=== PATIENT | female | born 1990 | race Caucasian/White ===

== ENCOUNTER 2019-08-20 11:51 | Outpatient (CLI) | payer BC, SELFPAY ==
--- NOTE | ~2019-08-20 | US_ITS ---
US breast LT complete DATE: 08/20/2019 12:35 INDICATION: Left breast lump at 9:00 TECHNIQUE: Real-time imaging of the complete left breast with particular attention to 9:00 2 cm from nipple at area of clinical complaint COMPARISON: 02/05/2019 left complete breast ultrasound FINDINGS: No suspicious of suspicious mass or suspicious shadowing of the left breast is detected. IMPRESSION: BI-RADS Category 1: Negative Reviewed, dictated and finalized at Location A. Reviewed, dictated and finalized at location A.
== END 2019-08-20 11:52 | disposition home or self-care (01) ==
PROVIDERS: PCP Registered Nurse; Visit Provider Nurse Practitioner Obstetrics & Gynecology
DX: N64.4 Mastodynia (principal)
CPT/HCPCS: 76641

== ENCOUNTER 2020-01-22 12:05 | Outpatient (NON) | payer BC, SELFPAY ==
[2020-01-22 22:14] LABS: SARS-CoV-2 RNA PCR Negative
== END 2020-01-22 12:06 ==
PROVIDERS: PCP Registered Nurse; Visit Provider Registered Nurse
DX: Z20.828 Contact with and (suspected) exposure to other viral communicable diseases (principal); R05 Cough; R53.83 Other fatigue
CPT/HCPCS: 87635; C9803; U0003

== ENCOUNTER → 2020-11-06 08:33 | Outpatient (CLI) | payer BC, SELFPAY ==
--- NOTE | ~2020-11-06 | MMUS_ITS ---
EXAMINATION: MM diagnostic triston BI w buzz, US breast BI complete HISTORY: Palpable bilateral breast lumps with breast pain TECHNIQUE: Additional 3-D tomosynthesis images of the breasts were performed and synthetic 2-D images were generated. CAD analysis was submitted and interpreted. High resolution bilateral complete breas t ultrasound was performed. COMPARISON: 09/08/2017 BREAST PARENCHYMAL COMPOSITION: Breast composed of scattered areas of fibroglandular density. FINDINGS: MAMMOGRAPHIC FINDINGS: There are no suspicious masses, calcifications or architectural distortion in either breast to sugges t malignancy. ULTRASOUND: Unremarkable limited bilateral breast ultrasound without evidence for focal solid or cystic mass. IMPRESSION: 1. No evidence for malignancy in either breast. 2. Routine yearly screening mammogram and regular clinical breast examination are recommended. BI-RADS Category 1: Negative Reviewed, dictated and finalized at location A. IMPRESSION: 1. No evidence for malignancy in either breast. 2. Routine yearly screening mammogram and regular clinical breast examination a re recommended. BI-RADS Category 1: Negative
== END ==
PROVIDERS: Visit Provider Advanced Practice Midwife
DX: N63.0 Unspecified lump in unspecified breast (principal); R92.8 Other abnormal and inconclusive findings on diagnostic imaging of breast
CPT/HCPCS: 76641; 77062; 77066; G0279

== ENCOUNTER → 2021-02-04 08:41 | Outpatient (CLI) | payer BC, SELFPAY ==
--- NOTE | ~2021-02-04 | MR_ITS ---
EXAMINATION: MR brain/brain stem wo con EXAM DATE: 02/04/2021 09:50 INDICATION: Memory loss, forgetfulness, word finding difficulty memory loss, forgetfulness, word find ing difficulty. TECHNIQUE: Magnetic resonance imaging (MRI) of the brain/brain stem obtained without contrast. Maricarmen jones T1, axial diffusion, gradient echo (T2*), T1, T2, FLAIR sequences obtained. Comparison is made to prior examination from 01/03/2013. FINDINGS: There are no areas of restricted diffusion to suggest acute infarction. There is no acute hemorrhage seen on the T2*, a hemosiderin sensitive sequence. No intraparenchymal brain mass. The ve ntricles are normal in size. There are no extra-axial collections. Flow voids are seen in the cereb ral arteries on the T2-weighted sequences consistent with their expected patency. The orbits are unr emarkable. Soft tissue is unremarkable. There is no interval change. IMPRESSION: Normal brain MRI examination. Reviewed, dictated and finalized at location A.
== END ==
PROVIDERS: PCP Registered Nurse; Visit Provider Registered Nurse
DX: R41.3 Other amnesia (principal); R68.89 Other general symptoms and signs; R47.89 Other speech disturbances; Z87.898 Personal history of other specified conditions
CPT/HCPCS: 70551

== ENCOUNTER 2021-08-25 11:20 | Emergency (ER) | payer OTHER, SELFPAY ==
--- NOTE | ~2021-08-25 | XR_ITS ---
EXAMINATION: XR chest 2V DATE: 08/25/2021 12:00 INDICATION: Left chest tightness TECHNIQUE: PA and lateral views of the chest were obtained. COMPARISON: Chest radiograph dated 10/26/2018 FINDINGS: The lungs remain clear with no focal airspace opacities, pulmonary edema, pleural effusion or pneumot horax. The cardiomediastinal silhouette is normal. Visualized bones and soft tissues are unremarkable . IMPRESSION: 1. No acute cardiopulmonary disease. Reviewed, dictated and finalized at location B.
--- NOTE | ~2021-08-25 | CT_ITS ---
EXAMINATION: CT abdomen pelvis w con DATE: 08/25/2021 14:01 INDICATION: abd pain TECHNIQUE: Computed tomography (CT) of the abdomen and pelvis was performed with 75 mL Omnipaque 300 intravenous contrast. Automated exposure control and iterative reconstruction technique were employed . The dose-length product was 1370.47 mGy-cm. COMPARISON: None FINDINGS: Lower thorax: Unremarkable Liver: Normal. Biliary/Gallbladder: Gallbladder is normal. No bile duct dilation. Pancreas: No mass or duct dilation. Spleen: Splenic hypodensities, likely cysts and/or hemangiomas. Adrenals:No mass. Kidneys: No mass, stone, or hydronephrosis. GI tract: No small or large bowel dilation. Normal appendix. Mesentery/Peritoneum: No ascites, mass, or free air. Retroperitoneum: No mass. Pelvis: Pelvic organs are within normal limits. Soft Tissues: Soft tissues and body wall unremarkable. Bones: No acute osseous finding. IMPRESSION: No acute abdominopelvic process. Reviewed, dictated and finalized at location K.
--- NOTE | 2021-08-25 11:23 | ECG_ITS ---
Measurements Intervals [place] Rate: 101 P: 48 [place]: 147 QRS: 34 QRSD: 81 T: -11 QT: 331 QTc: 430 Interpretive Statements SINUS TACHYCARDIA BORDERLINE ST-T WAVE ABNORMALITY- ANTEROLAT/INF LEADS BORDERLINE ECG Electronically Signed On 08-25-2021 11:36:23 CDT by Eliu Wilson D.O.
[2021-08-25 11:30] VITALS: BP 128/64; PULSE 108; RESP 14; TEMP 36.4; O2SAT 100
[2021-08-25 11:47] VITALS: O2SAT 99
[2021-08-25 11:52] LABS: Basophils Absolute Auto 0.1 K/mm3 (0.0-0.1); Basophils Percent Auto 0.6 % (0.2-1.2); Eosinophils Absolute Auto 0.4 K/mm3 (0-0.3); Eosinophils Percent Auto 2.2 % (0-4.4); Hematocrit 38.7 % (37.0-47.0); Immature Granulocyte Absolute 0.04 K/mm3 (0.00-0.031); Immature Granulocyte Percent A 0.2 % (0-0.5); Lymphocytes Absolute Auto 1.48 K/mm3 (0.9-3.2); Lymphocytes Percent Auto 8.7 % (18.3-44.2); Mean Corpuscular HGB Conc 33.6 g/dl (32-36); Mean Corpuscular Hemoglobin 27.4 pg (26-34); Mean Corpuscular Volume 81.6 fl (80-100); Mean Platelet Volume 9.4 fl (7.4-10.4); Monocytes Percent Auto 5.7 % (2.6-8.5); Neutrophils Percent Auto 82.6 % (45.5-73.1); Platelet Count Result 230 k/mm3 (150-375); Red Blood Count 4.74 M/mm3 (4.2-5.4); Red Cell Distribution Width 13.5 % (11.5-14.5); White Blood Count 16.9 K/mm3 (4.5-10.0)
[2021-08-25 12:01] LABS: Alanine Aminotransferase 43 U/L (6-35); Albumin Level 4.2 g/dL (3.5-5.1); Alkaline Phosphatase 39 U/L (38-126); Anion Gap 9 mmol/L (8-16); Aspartate Amino Transferase 39 U/L (14-36); Bilirubin,Total 0.3 mg/dL (0.2-1.3); Blood Urea Nitrogen 11 mg/dL (7-17); Carbon Dioxide 27 mmol/L (22-30); Chloride 103 mmol/L (98-107); Estimated CRCL calculation 105 ml/min; Estimated Glomerular Filt Rate > 60; Glucose 152 mg/dL (65-110); Lipase 90 U/L (23-300); Sodium 139 mmol/L (137-145)
[2021-08-25 12:02] LABS: INR 1.1; Prothrombin Time 13.5 Seconds (11.1-14.7)
[2021-08-25 12:03] LABS: Partial Thromboplastin Time 29.9 SECONDS (22.3-36.8)
[2021-08-25 12:12] LABS: Troponin I < 0.012 ng/mL (0.000-0.034)
[2021-08-25 12:36] LABS: D Dimer 0.47 ug/mL (<0.48)
--- NOTE | 2021-08-25 12:52 | ED.CHESTPAIN ---
HPI - Chest Pain General Chief Complaint: Chest Pain Stated Complaint: chest pain with bilateral extremity tingling Time Seen by Provider: 08/25/21 11:38 History of Present Illness HPI narrative: 30-year-old female presents to the emergency room complaints of chest pain that started at 9:00 this morning felt like a squeezing sensation with and occasional sharp feeling. Patient states the pain was present for approximately 2 hours and was not alleviated or aggravated by any factors. Patient states that she also experienced a candidate radiating pain that started in her feet and worked up to her chest that lasted for just a few seconds. Patient also complained of a headache. Patient also states that she was recently diagnosed with urinary tract infection, which she has not started the antibiotics for you. Patient denies abdominal pain, suprapubic pain, fever, back pain. Related Data Allergies Allergy/AdvReac Type Severity Reaction Status Date / Time adhesive Allergy Unknown RASH Verified 05/09/18 08:00 Course Vital Signs Vital signs: Vital Signs Temperature 36.4 C 08/25/21 11:30 Pulse Rate 108 H 08/25/21 11:30 Respiratory Rate 14 08/25/21 11:30 Blood Pressure 128/64 08/25/21 11:30 Pulse Oximetry 100 08/25/21 11:30 Oxygen Delivery Room Air 08/25/21 11:30 Temperature 36.4 C 08/25/21 11:30 Pulse Rate 90 08/25/21 13:38 Respiratory Rate 16 08/25/21 13:38 Blood Pressure 124/75 08/25/21 13:38 Pulse Oximetry 98 08/25/21 13:38 Oxygen Delivery Room Air 08/25/21 11:47 MDM - Chest Pain MDM Narrative Medical decision making narrative: 30-year-old female presented to the emergency room with complaints of chest discomfort, described as a squeezing pain with an occasional stabbing pain. Patient stated the pain lasted for about 2 2-1/2 hours, and abruptly stopped. Patient also states that she was recently diagnosed with a urinary tract infection, and has not started on antibiotics. CBC shows a leukocytosis of 16.9, likely due to her urinary tract infection CMP was unremarkable lactic acid was elevated likely due to her infection. Urinalysis urine in the emergency room shows no evidence of a urinary tract infection, but will treat patient. Troponin was negative. Imaging shows no acute cardiopulmonary process, or intra-abdominal process at this time. Lab Data Result diagrams: 08/25/21 11:45 08/25/21 11:45 Labs: Lab Results 08/25/21 08/25/21 08/25/21 Range/Units 11:44 11:45 11:45 WBC 16.9 H (4.5-10.0) K/mm3 RBC 4.74 (4.2-5.4) M/mm3 Hgb 13.0 (12.0-15.0) g/dL Hct 38.7 (37.0-47.0) % MCV 81.6 (80-100) fl MCH 27.4 (26-34) pg MCHC 33.6 (32-36) g/dl RDW 13.5 (11.5-14.5) % Plt Count 230 (150-375) k/mm3 MPV 9.4 (7.4-10.4) fl Immature Gran % (Auto) 0.2 (0-0.5) % Neut % (Auto) 82.6 H (45.5-73.1) % Lymph % (Auto) 8.7 L (18.3-44.2) % Leon % (Auto) 5.7 (2.6-8.5) % Eos % (Auto) 2.2 (0-4.4) % Baso % (Auto) 0.6 (0.2-1.2) % Lymph # (Auto) 1.48 (0.9-3.2) K/mm3 Leon # (Auto) 1.0 H (0.1-0.6) K/mm3 Eos # (Auto) 0.4 H (0-0.3) K/mm3 Baso # (Auto) 0.1 (0.0-0.1) K/mm3 Abs Immat Gran (auto) 0.04 H (0.00-0.031) K/mm3 Absolute Neuts (auto) 14.0 H (1.3-6.7) K/mm3 Absolute Nucleated RBC 0.0 (0.0-0.012) K/mm3 Nucleated RBC % 0.0 (0.0-0.2) % PT 13.5 (11.1-14.7) Seconds INR 1.1 APTT 29.9 (22.3-36.8) SECONDS D-Dimer 0.47 (<0.48) ug/mL Sodium (137-145) mmol/L Potassium (3.4-5.0) mmol/L Chloride (98-107) mmol/L Carbon Dioxide (22-30) mmol/L Anion Gap (8-16) mmol/L BUN (7-17) mg/dL Creatinine (0.7-1.0) mg/dL Estim Creat Clear Calc ml/min Estimated GFR (59 - ) Glucose (65-110) mg/dL Lactic Acid (0.7-2.0) mmol/L Calcium (8.4-10.2) mg/dL Total Bilirubin (0.2-1.3) mg/dL AST (14-36) U/L AL
[2021-08-25 13:19] LABS: Appearance Urine Clear (Clear); Bilirubin Urine Negative (Negative); Blood Urine Negative (Negative); Color Urine Yellow (Yellow); Glucose Urine UA Negative (Negative); Ketones Urine Negative (Negative); Leukocyte Esterase Ur Negative LEU/UL (Negative); Nitrate Urine Negative (Negative); Protein Urine Negative (Negative); Specific Grav Ur 1.025 (1.001-1.035); Urobilinogen Urine 0.2 mg/dL (<2.0); pH Urine 5.5 (5.0-9.0)
[2021-08-25] MEDS: SODIUM CHLORIDE 0.9% IV 1,000 ML 999 ML IV CONT (13:19)
[2021-08-25 13:20] LABS: Lactic Acid Reflex 2.4 mmol/L (0.7-2.0)
[2021-08-25 13:23] LABS: Add Urine Microscopic? NO
[2021-08-25 13:38] VITALS: BP 124/75; PULSE 90; RESP 16; O2SAT 98
--- NOTE | 2021-08-25 13:53 | PC.NURSE ---
Pt to CT.
[2021-08-25 14:17] VITALS: PULSE 97; RESP 16; O2SAT 99
[2021-08-25 14:38] LABS: Troponin I < 0.012 ng/mL (0.000-0.034)
[2021-08-25 16:08] LABS: Reflex Lactic Acid Yes or No Add Lactic
== END 2021-08-25 14:34 | disposition home or self-care (01) ==
PROVIDERS: General Practice; Emergency Provider Nurse Practitioner Family; PCP Registered Nurse
DX: R07.9 Chest pain, unspecified (principal); N39.0 Urinary tract infection, site not specified; R00.0 Tachycardia, unspecified; R94.31 Abnormal electrocardiogram [ECG] [EKG]
CPT/HCPCS: 36415; 71046; 74177; 80053; 81003; 81025; 83605; 83690; 84484; 85025; 85380; 85610; 85730; 93005; 96365; 99284; J0696; J7030; Q9967

== ENCOUNTER 2021-09-30 12:20 | Emergency (ER) | payer OTHER, SELFPAY ==
--- NOTE | ~2021-09-30 | XR_ITS ---
XR knee LT min 4V DATE: 09/30/2021 12:42 INDICATION: Left knee injury, pain TECHNIQUE: 4 views including crosstable lateral COMPARISON: None FINDINGS: Small suprapatellar knee joint effusion is suggested. Minimal enthesopathy of the superior pole of patella at the quadriceps tendon insertion. No fracture, dislocation, periosteal reaction or bone destruction, radiopaque intra-articular loose b benton or chondrocalcinosis. Joint spaces are relatively well preserved. IMPRESSION: Suggestion of small suprapatellar knee joint effusion Reviewed, dictated and finalized at location B.
[2021-09-30 12:28] VITALS: BP 139/75; PULSE 97; RESP 16; TEMP 36.6; O2SAT 100
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
== END 2021-09-30 12:58 | disposition home or self-care (01) ==
PROVIDERS: Emergency Provider Nurse Practitioner Family; PCP Registered Nurse
DX: M25.462 Effusion, left knee (principal); J45.909 Unspecified asthma, uncomplicated; F31.9 Bipolar disorder, unspecified
CPT/HCPCS: 73564; 99213; G0463

== ENCOUNTER → 2021-11-28 09:41 | Outpatient (CLI) | payer OTHER, SELFPAY ==
--- NOTE | ~2021-11-28 | MR_ITS ---
EXAMINATION: MR knee LT wo con DATE: 11/28/2021 10:23 INDICATION: Medial left knee pain post fall 2 months prior TECHNIQUE: Magnetic resonance imaging (MRI) of the left knee was performed without intravenous contra st. Sequences included coronal PD-weighted FSE, coronal PD-weighted FS FSE, sagittal T2-weighted FSE , sagittal PD-weighted FS FSE and axial PD weighted fat saturated FSE. COMPARISON: None. FINDINGS: Medial compartment: Medial meniscus is normal. Articular cartilage is normal. Lateral compartment: Lateral meniscus is normal. Articular cartilage is normal. Patellofemoral compartment: Articular cartilage is normal. Ligaments and tendons: Anterior and posterior cruciate ligaments are normal. The fibular collateral ligament complex is norm al. There is mild thickening and increased signal of the proximal medial collateral ligament with min imal surrounding soft tissue edema consistent with subacute moderate grade sprain/partial tear. The e xtensor mechanism is normal. The visualized medial and lateral hamstring tendons as well as the iliot ibial band are normal. Fluid: Physiologic amount of fluid in the joint space. No loose osteochondral bodies identified. Osseous/other: Mild marrow edema such with a subtle linear subarticular impaction fracture line at the posterior asp ect of the weightbearing lateral femoral condyle. Otherwise normal marrow signal. No other lesions byrd spicious for fracture. No pathologic marrow replacing process. IMPRESSION: 1. Moderate grade sprain/partial tear of the proximal medial collateral ligament. 2. Nondisplaced subacute subarticular trabecular impaction fracture underlying the posterior weightbe aring lateral femoral condyle. Reviewed, dictated and finalized at location A. IMPRESSION: 1. Moderate grade sprain/partial tear of the proximal medial collateral ligamen t. 2. Nondisplaced subacute subarticular trabecular impaction fracture underlying the posterior weightbearing lateral femoral condyle.
== END ==
PROVIDERS: PCP Registered Nurse; Visit Provider Registered Nurse
DX: S83.412A Sprain of medial collateral ligament of left knee, initial encounter (principal); S72.425A Nondisplaced fracture of lateral condyle of left femur, initial encounter for closed fracture; X58.XXXA Exposure to other specified factors, initial encounter
CPT/HCPCS: 73721

== ENCOUNTER 2022-06-04 00:27 | Day surgery (SDC) | payer OTHER, SELFPAY ==
[2022-05-19 15:41] VITALS: BMI 42.5
[2022-06-04 08:35] VITALS: BP 114/67; PULSE 90; RESP 20; TEMP 36.4; O2SAT 100; BMI 40.9
[2022-06-04] MEDS: LACTATED RINGERS 1,000 ML 150 ML IV CONT (08:56)
--- NOTE | 2022-06-04 09:07 | P.PNAN_ITS ---
Anes - Initial Pre Proc Eval Procedure: Operation Date: 06/04/22 10:00 Proposed Procedures p Colonoscopy - Mateusz Tomlin MD Date/Time: 06/04/22 09:07 Surgeon: Mateusz Tomlin MD Pre Op Diagnosis: change bowel habits,diarrhea,Lower abdominal pain Patient Data Age: 31 Gender: F Height: 1.6 m Weight: 104.9 kg Last Vital Signs Temp 97.6 F 06/04/22 08:35 Pulse 90 06/04/22 08:35 Resp 20 06/04/22 08:35 BP 114/67 06/04/22 08:35 Pulse Ox 100 06/04/22 08:35 O2 Del Method Room Air 06/04/22 08:35 Allergies Allergy/AdvReac Type Severity Reaction Status Date / Time adhesive Allergy Unknown RASH Verified 06/04/22 08:45 Home Medications Medication Instructions Recorded Confirmed Type albuterol sulfate 90 mcg/actuation 2 puff inhalation Q4H PRN 04/29/22 06/04/22 History aerosol inhaler Shortness Of Breath clonidine HCl 0.1 mg tablet 0.1 mg PO BID 04/29/22 06/04/22 History escitalopram oxalate 20 mg tablet 20 mg PO DAILY 04/29/22 06/04/22 History lamotrigine 200 mg tablet 200 mg PO QHS 04/29/22 06/04/22 History risperidone 0.25 mg tablet 0.25 mg PO QHS 04/29/22 06/04/22 History ferrous sulfate 325 mg (65 mg 325 mg PO DAILY 05/19/22 06/04/22 History iron) tablet Patient hx anesthesia problems: none Family hx anesthesia problems: none Results Review: All pre-operative results and documents have been reviewed as part of the pre- operative evaluation. [facility] Past Medical History Medical History History of brain tumor resolved Pre-diabetes Sleep apnea Surgical History Surgical History History of colonoscopy normal Hx of tonsillectomy Family History Family History Father Hypertension Mother Diabetes mellitus Heart problem Sibling Acute myocardial infarction, Onset Age: 26 , Social History Social History Smoking status: Never smoker Alcohol intake: never Substance use: never Substance use type: does not use Living arrangements: with family Occupation/Education: occupation Additional occupation/education comments: [employer] Gender identity (if verbalized by the patient): Female Spiritual care concerns: No Anes - Eval Final PreProcedure Day of Procedure 06/04/22 09:07 Patient weight: morbidly obese Heart: regular rate and rhythm Lungs: clear to auscultation Airway: Mallampati scale class II Neurological: alert and oriented Last oral intake: >/= 8 hours ASA classification: III Emergent: no Anesthetic plan: proceed Anesthesia type and monitoring: general GIVS and standard monitoring Results Review: All pre-operative results and documents have been reviewed as part of the pre- operative evaluation. Informed Consent: The patient's anesthetic plan and its attendant risks and benefits were discussed with the patient/family/POA. Questions were solicited and answers provided to the satisfaction of the patient/family/POA.
--- NOTE | 2022-06-04 09:12 | PM.HPGS ---
History of Present Illness History of Present Illness Consent: Risks, benefits, and alternatives have been discussed and questions answered. Patient agrees to proceed with procedure. Chief complaint: change bowel habits,diarrhea,Lower abdominal pain Narrative: Lara Laboy is a 31 year old female with few months of loose stool and abdominal discomfort, better after given abx Review of Systems Constitutional: Constitutional: Denies headache(s) and Denies weakness Eyes: Eyes: Denies blurry vision ENT: Reports Normal hearing present, Denies headache(s) and Denies neck pain Cardiovascular: Cardiovascular: Denies chest pain and Denies dyspnea Respiratory: Respiratory: Denies dyspnea Gastrointestinal: Gastrointestinal: Reports no additional gastrointestinal complaints Genitourinary: Genitourinary: Denies dysuria Musculoskeletal: Musculoskeletal: Denies neck pain Integumentary/Breasts: Skin/Breast: Denies dry skin Neurologic: Reports Normal hearing present, Denies headache(s) and Denies weakness Psychiatric: Psychiatric: Denies anxiety Endocrine: Endocrine: Denies change in body appearance Hematologic/Lymphatic: Hematologic/Lymphatic: Denies easy bleeding Allergic/Immunologic: Allergic/Immunologic: Denies urticaria PMFSH Past Medical History Medical History (Updated 06/04/22 @ 09:13 by Mateusz Tomlin MD) Diarrhea History of brain tumor resolved Pre-diabetes Sleep apnea Surgical History Surgical History History of colonoscopy normal Hx of tonsillectomy Family History Family History Father Hypertension Mother Diabetes mellitus Heart problem Sibling Acute myocardial infarction, Onset Age: 26 , Social History Social History Smoking status: Never smoker Alcohol intake: never Substance use: never Substance use type: does not use Living arrangements: with family Occupation/Education: occupation Additional occupation/education comments: [employer] Gender identity (if verbalized by the patient): Female Spiritual care concerns: No Meds Home Medications and Allergies Home Medications Medication Instructions Recorded Confirmed Type albuterol sulfate 90 mcg/actuation 2 puff inhalation Q4H PRN 04/29/22 06/04/22 History aerosol inhaler Shortness Of Breath clonidine HCl 0.1 mg tablet 0.1 mg PO BID 04/29/22 06/04/22 History escitalopram oxalate 20 mg tablet 20 mg PO DAILY 04/29/22 06/04/22 History lamotrigine 200 mg tablet 200 mg PO QHS 04/29/22 06/04/22 History risperidone 0.25 mg tablet 0.25 mg PO QHS 04/29/22 06/04/22 History ferrous sulfate 325 mg (65 mg 325 mg PO DAILY 05/19/22 06/04/22 History iron) tablet Allergies Allergy/AdvReac Type Severity Reaction Status Date / Time adhesive Allergy Unknown RASH Verified 06/04/22 08:45 Vital Signs Vital Signs - 24 hr 06/04/22 08:35 Temperature 97.6 F Pulse Rate 90 Respiratory Rate 20 Blood Pressure 114/67 Pulse Oximetry 100 Oxygen Delivery Room Air Exam Const: General: comfortable and no acute distress HENMT: Face/Nose/Sinus: Normal nares present Eyes: General: appearance normal, both eyes and all related structures Neck: Neck: no JVD Resp: Auscultation: clear to auscultation bilaterally Cardio: Rate: regular rate Rhythm: regular rhythm GI: Inspection: non-distended GI Palp: Yes Soft to palpation Skin: General skin exam: normal color Neuro: General: gait normal Speech: normal speech Extrem: General: normal to inspection Psych: Mental Status: mental status grossly normal Assessment and Plan Assessment and plan (1) Diarrhea: Code(s): R19.7 - Diarrhea, unspecified Status: Acute Assessment and Plan: colonoscopy, consider random colon bx
[2022-06-04 09:29] VITALS: BP 103/67; PULSE 81; RESP 22; O2SAT 100
[2022-06-04 09:39] VITALS: BP 118/80; PULSE 81; RESP 18; O2SAT 100
[2022-06-04 09:49] VITALS: BP 125/88; PULSE 77; RESP 20; O2SAT 100
== END 2022-06-04 09:59 | disposition home or self-care (01) ==
PROVIDERS: PCP Family Medicine Adolescent Medicine; Visit Provider Internal Medicine Gastroenterology
PROC: 0DJD8ZZ Inspection of Lower Intestinal Tract, Via Natural or Artificial Opening Endoscopic (ICD-10-PCS; CPT 45378; principal; 2022-06-04 10:00)
DX: R19.7 Diarrhea, unspecified (principal); K64.8 Other hemorrhoids; K64.4 Residual hemorrhoidal skin tags; G47.30 Sleep apnea, unspecified; Z79.51 Long term (current) use of inhaled steroids; E66.01 Morbid (severe) obesity due to excess calories; Z68.41 Body mass index [BMI] 40.0-44.9, adult
CPT/HCPCS: 45380; 88305; J2704; J7120

== ENCOUNTER 2022-11-23 18:09 | Emergency (ER) | payer OTHER, SELFPAY ==
--- NOTE | ~2022-11-23 | XR_ITS ---
EXAMINATION: XR chest 2V DATE: 11/23/2022 18:51 INDICATION: Chest pain and shortness of breath TECHNIQUE: PA and lateral views of the chest were obtained. COMPARISON: Chest radiograph dated 08/25/2021 FINDINGS: The lungs remain clear with no focal airspace opacities, pulmonary edema, pleural effusion or pneumot horax. The cardiomediastinal silhouette is normal. Mild to moderate thoracic and upper lumbar spondyl osis. IMPRESSION: 1. No acute cardiopulmonary disease. Reviewed, dictated and finalized at location A.
--- NOTE | 2022-11-23 18:13 | ECG_ITS ---
Measurements Intervals [place] Rate: 84 P: 44 [place]: 156 QRS: 51 QRSD: 75 T: -1 QT: 380 QTc: 450 Interpretive Statements SINUS RHYTHM COMPARED TO ECG 08/25/2021 11:28:06 THE HEART RATE IS SLOWER Electronically Signed On 11-24-2022 17:18:07 CDT by Cinthya Rick M.D.
[2022-11-23 18:20] VITALS: BP 128/83; PULSE 79; RESP 18; TEMP 36.6; O2SAT 99
[2022-11-23 18:47] LABS: Basophils Absolute Auto 0.1 K/mm3 (0.0-0.1); Basophils Percent Auto 0.8 % (0.2-1.2); Eosinophils Absolute Auto 0.4 K/mm3 (0-0.3); Eosinophils Percent Auto 3.6 % (0-4.4); Hematocrit 39.7 % (37.0-47.0); Hemoglobin 12.8 g/dL (12.0-15.0); Immature Granulocyte Absolute 0.03 K/mm3 (0.00-0.031); Immature Granulocyte Percent A 0.3 % (0-0.5); Lymphocytes Absolute Auto 2.69 K/mm3 (0.9-3.2); Mean Corpuscular HGB Conc 32.2 g/dl (32-36); Mean Corpuscular Hemoglobin 27.5 pg (26-34); Mean Corpuscular Volume 85.4 fl (80-100); Mean Platelet Volume 9.9 fl (7.4-10.4); Monocytes Absolute Auto 0.5 K/mm3 (0.1-0.6); Monocytes Percent Auto 4.7 % (2.6-8.5); Neutrophils Absolute Auto 6.7 K/mm3 (1.3-6.7); Neutrophils Percent Auto 64.6 % (45.5-73.1); Platelet Count Result 255 k/mm3 (150-375); Red Blood Count 4.65 M/mm3 (4.2-5.4); Red Cell Distribution Width 13.5 % (11.5-14.5); White Blood Count 10.3 K/mm3 (4.5-10.0)
[2022-11-23 18:57] LABS: Alanine Aminotransferase 34 U/L (6-35); Albumin Level 4.5 g/dL (3.5-5.1); Alkaline Phosphatase 39 U/L (38-126); Anion Gap 10 mmol/L (8-16); Aspartate Amino Transferase 26 U/L (14-36); Bilirubin,Total 0.4 mg/dL (0.2-1.3); Blood Urea Nitrogen 16 mg/dL (7-17); Calcium 9.1 mg/dL (8.4-10.2); Carbon Dioxide 24 mmol/L (22-30); Chloride 102 mmol/L (98-107); Estimated CRCL calculation 102 ml/min; Estimated Glomerular Filt Rate > 60; Glucose 125 mg/dL (65-110); Lipase 78 U/L (23-300); Sodium 136 mmol/L (137-145)
[2022-11-23 18:58] LABS: Prothrombin Time 14.2 Seconds (11.1-14.7)
[2022-11-23 18:59] LABS: Partial Thromboplastin Time 31.2 SECONDS (22.3-36.8)
[2022-11-23 19:09] LABS: Troponin I < 0.012 ng/mL (0.000-0.034)
[2022-11-23 22:30] VITALS: O2SAT 100
--- NOTE | 2022-11-23 23:15 | PC.NURSE ---
gave report and care to RANDY Garcia. all questions answered.
[2022-11-23 23:31] LABS: Troponin I < 0.012 ng/mL (0.000-0.034)
--- NOTE | 2022-11-23 23:54 | ED.CHESTPAIN ---
HPI - Chest Pain General Chief Complaint: Chest Pain Stated Complaint: chest pain Time Seen by Provider: 11/23/22 23:21 Source: patient Mode of arrival: ambulatory Limitations: no limitations History of Present Illness HPI narrative: This is a 31 year old female that presents to the ER for episodes of chest pain today. Reports she started to have left sided intermittent chest pain. Reports the pain is stabbing in nature. Comes and goes. Reports some associated shortness of breath. Reports lightheadedness. Also reports a headache. Denies vomiting, numbness or weakness. Related Data Home Medications Medication Instructions Recorded Confirmed albuterol sulfate 90 mcg/actuation 2 puff inhalation Q4H PRN 04/29/22 09/29/22 aerosol inhaler Shortness Of Breath clonidine HCl 0.1 mg tablet 0.1 mg PO BID 04/29/22 09/29/22 escitalopram oxalate 20 mg tablet 20 mg PO DAILY 04/29/22 09/29/22 lamotrigine 200 mg tablet 200 mg PO QHS 04/29/22 09/29/22 risperidone 0.25 mg tablet 0.25 mg PO QHS 04/29/22 09/29/22 ferrous sulfate 325 mg (65 mg 325 mg PO DAILY 05/19/22 09/29/22 iron) tablet Allergies Allergy/AdvReac Type Severity Reaction Status Date / Time adhesive Allergy Unknown RASH Verified 11/23/22 18:23 Review of Systems Review of Systems: CONSTITUTIONAL: Denies fever EYES: Denies visual changes CARDIOVASCULAR: Reports chest pain. Denies palpitations, or edema. RESPIRATORY: Reports cough and dyspnea. GASTROINTESTINAL: Denies abdominal pain, nausea, vomiting GENITOURINARY: Denies dysuria All systems reviewed & are unremarkable except as noted in HPI and below PMFSH Past Medical History Medical History Diarrhea History of brain tumor resolved Pre-diabetes Sleep apnea Urinary tract infection Surgical History Surgical History History of colonoscopy normal Hx of tonsillectomy Family History Family History Father Hypertension Mother Diabetes mellitus Heart problem Sibling Acute myocardial infarction, Onset Age: 26 , Social History Social History Smoking status: Never smoker Alcohol intake: never Substance use: never Substance use type: does not use Lack of Transportation: No Lack of Food: Never True Current Housing: I Have Housing Concerned About Future Housing: No Difficulty Paying Gas/Electric Bills: No Difficulty Paying for Meds: No Currently Unemployed: No Education: High School Diploma/GED Difficulty w/ Childcare or Family Care: Decline to Answer Living arrangements: with family Occupation/Education: occupation Additional occupation/education comments: [employer] Gender identity (if verbalized by the patient): Female Spiritual care concerns: No Exam Narrative: GENERAL: Well-appearing, well-nourished, and in no acute distress. HEAD: Normocephalic, atraumatic. EYES: EOMI. ENT: Nares clear, no rhinorrhea or epistaxis. Mucous membranes moist. Oropharynx without tonsillar hypertrophy exudate or other lesions. Bilateral TMs pearly olivia non-bulging NECK: Supple. No adenopathy or masses. CHEST: Clear to auscultation. No respiratory distress. No wheezes rales or rhonchi HEART: Regular rate and rhythm. No murmur heard. Normal peripheral pulses. EXTREMITIES: Normal range of motion. No edema. SKIN: Warm, dry, no rash. NEURO: No focal deficits. Alert and oriented x3. PSYCH: Normal mood and affect Course Course Emergency Course: Patient was updated on workup and agrees with plan of care Vital Signs Vital signs: Vital Signs Temperature 98 F 11/23/22 18:20 Pulse Rate 79 11/23/22 18:20 Respiratory Rate 18 11/23/22 18:20 Blood Pressure 128/83 11/23/22 18:20 Pulse Oximetry 99
[2022-11-24] MEDS: ACETAMINOPHEN 500 MG TABLET 1000 MG PO (00:29)
[2022-11-24] MEDS: KETOROLAC 15 MG/ML VIAL (*BKC) IV PUSH (00:29)
[2022-11-24 00:47] LABS: Appearance Urine Cloudy (Clear); Bacteria Urine Rare /hpf; Bilirubin Urine Negative (Negative); Blood Urine 3+ (Negative); Color Urine Yellow (Yellow); Glucose Urine UA Negative (Negative); Ketones Urine Negative (Negative); Leukocyte Esterase Ur 1+ LEU/UL (Negative); Nitrate Urine Negative (Negative); Non Pathogenic Casts 0-2; Protein Urine Trace mg/dL (Negative); RBC Urine >100 /hpf (0-2); Specific Grav Ur 1.028 (1.001-1.035); Squamous Epithelial Cell Urine Few /hpf (Few); Urobilinogen Urine 0.2 mg/dL (<2.0); WBC Urine 21-50 /hpf; pH Urine 5.5 (5.0-9.0)
[2022-11-24 00:50] LABS: Add Urine Microscopic? YES
[2022-11-24 00:53] VITALS: BP 124/71; PULSE 88; RESP 21; O2SAT 98
== END 2022-11-24 01:48 | disposition home or self-care (01) ==
PROVIDERS: Emergency Medicine; Emergency Provider Physician Assistant; PCP Family Medicine Adolescent Medicine
DX: R07.9 Chest pain, unspecified (principal); N30.01 Acute cystitis with hematuria; R73.03 Prediabetes; G47.30 Sleep apnea, unspecified; Z79.84 Long term (current) use of oral hypoglycemic drugs
CPT/HCPCS: 36415; 71046; 80053; 81001; 81025; 83690; 84484; 85025; 85610; 85730; 87086; 87088; 93005; 96374; 99284; A9270; J1885

== ENCOUNTER 2023-01-17 08:01 | Emergency (ER) | payer OTHER, SELFPAY ==
[2023-01-17 08:17] VITALS: BP 121/71; PULSE 83; RESP 18; TEMP 36.2; O2SAT 100
--- NOTE | 2023-01-17 08:25 | ED.SOB ---
HPI - SOB/Dyspnea General Chief Complaint: Shortness of Breath/Dyspnea Stated Complaint: hard time breathing ,pressure Source: patient Mode of arrival: ambulatory Limitations: no limitations History of Present Illness HPI Narrative: 61-[id number]-[facility] Complaints of shortness of breath since yesterday. Patient reports that her symptoms became worse today. Patient reports that she does have intermittent cough. Patient reports that she did have dizziness this morning. Patient reports that she has had to use her inhaler due to shortness of breath which has mildly helped her symptoms. Patient does report history of asthma. Patient denies sick contacts. Patient denies recent travel. Patient states I have shortness of breath, I have to manually breathe and feels like sometimes stops it. MD elicited complaint: shortness of breath and cough Pertinent past history: asthma Onset (ago): day(s) (1) Known history of: asthma Treatment prior to arrival: other (inhaler) Related Data Home Medications Medication Instructions Recorded Confirmed albuterol sulfate 90 mcg/actuation 2 puff inhalation Q4H PRN 04/29/22 01/17/23 aerosol inhaler Shortness Of Breath clonidine HCl 0.1 mg tablet 0.1 mg PO BID 04/29/22 01/17/23 escitalopram oxalate 20 mg tablet 20 mg PO DAILY 04/29/22 01/17/23 lamotrigine 200 mg tablet 200 mg PO QHS 04/29/22 01/17/23 risperidone 0.25 mg tablet 0.25 mg PO QHS 04/29/22 01/17/23 ferrous sulfate 325 mg (65 mg 325 mg PO DAILY 05/19/22 01/17/23 iron) tablet Allergies Allergy/AdvReac Type Severity Reaction Status Date / Time adhesive Allergy Unknown RASH Verified 01/17/23 08:15 Review of Systems Constitutional: Constitutional: Denies chills, Denies fatigue, Denies fever(s) and Denies weakness ENT: Denies dysphagia, Denies vertigo, Reports dizziness, Denies epistaxis and Denies nasal congestion Cardiovascular: Cardiovascular: Denies chest pain Respiratory: Respiratory: Denies chest congestion, Reports cough, Reports dyspnea and Denies wheezing Gastrointestinal: Gastrointestinal: Denies diarrhea, Denies nausea and Denies vomiting Musculoskeletal: Musculoskeletal: Denies arthralgias and Denies joint swelling Integumentary/Breasts: Skin/Breast: Denies pruritus, Denies erythema and Denies rash Neurologic: Denies vertigo, Reports dizziness, Denies syncope and Denies headache(s) [facility] Past Medical History Medical History Diarrhea History of brain tumor resolved Pre-diabetes Sleep apnea Urinary tract infection Surgical History Surgical History History of colonoscopy normal Hx of tonsillectomy Family History Family History Father Hypertension Mother Diabetes mellitus Heart problem Sibling Acute myocardial infarction, Onset Age: 26 , Social History Social History Smoking status: Never smoker Alcohol intake: never Substance use: never Substance use type: does not use Lack of Transportation: No Lack of Food: Never True Current Housing: I Have Housing Concerned About Future Housing: No Difficulty Paying Gas/Electric Bills: No Difficulty Paying for Meds: No Currently Unemployed: No Education: High School Diploma/GED Difficulty w/ Childcare or Family Care: Decline to Answer Living arrangements: with family Occupation/Education: occupation Additional occupation/education comments: [employer] Gender identity (if verbalized by the patient): Female Spiritual care concerns: No Comments At time of signature, I agree with nursing past medical, surgical, social and family history. There is no relevant family history pertinent to the presenting complaint. Exam Const: General:
[2023-01-17 11:41] LABS: EDCOVIDSCREEN Negative (Negative)
== END 2023-01-17 09:14 | disposition left against medical advice (07) ==
PROVIDERS: Emergency Provider Nurse Practitioner Family; PCP Family Medicine Adolescent Medicine
DX: J45.909 Unspecified asthma, uncomplicated (principal); R06.00 Dyspnea, unspecified; Z79.899 Other long term (current) drug therapy; Z20.822 Contact with and (suspected) exposure to COVID-19
CPT/HCPCS: 36415; 87426; 99213; C9803; G0463

== ENCOUNTER 2023-07-18 14:28 | Outpatient (CLI) | payer OTHER, SELFPAY ==
--- NOTE | ~2023-07-18 | XR_ITS ---
EXAMINATION: XR TMJ BI DATE: 07/18/2023 15:08 INDICATION: Arthralgia of right temporomandibular joint. TECHNIQUE: Open-mouth and closed mouth views of the bilateral temporomandibular joints for a total of 4 views were obtained. COMPARISON: None. FINDINGS: The mandibular condyles are normal in morphology. There is normal anterior translation of t he mandibular condyles in the open-mouth position. Joint spaces are normal. IMPRESSION: 1. Normal temporomandibular joints. Reviewed, dictated and finalized at location E.
== END 2023-07-18 14:29 ==
LOC: MICIMG 14:29
PROVIDERS: PCP Nurse Practitioner Family; Visit Provider Nurse Practitioner Family
DX: M26.621 Arthralgia of right temporomandibular joint (principal)
CPT/HCPCS: 70330

== ENCOUNTER 2023-09-29 15:22 | Outpatient (CLI) | payer OTHER, SELFPAY ==
--- NOTE | ~2023-09-29 | CT_ITS ---
EXAMINATION: CT IAC/mastoids BI wo con DATE: 09/29/2023 15:38 INDICATION: Right-sided hearing loss. Tinnitus. Right ear pain. TECHNIQUE: Computed tomography (CT) of the temporal bones was performed without intravenous contrast. Automated exposure control and iterative reconstruction technique were employed. The dose-length pro duct was 181.17 mGy-cm. COMPARISON: None FINDINGS: RIGHT TEMPORAL BONE: The internal auditory canal, cochlea, vestibule, semicircular canals, vestibular aqueduct, carotid ca nal, jugular bulb, facial nerve course, ossicles, Prussak space, scutum, tympanic membrane, external auditory canal, and temporomandibular joint are normal. There is a small mastoid effusion. LEFT TEMPORAL BONE: The internal auditory canal, cochlea, vestibule, semicircular canals, common carotid canal, jugular b ulb, vestibular aqueduct, ossicles, Prussak space, scutum, mastoid air cells, external auditory canal , and temporomandibular joint are normal. IMPRESSION: 1. Small right mastoid effusion. Reviewed, dictated and finalized at location A.
== END 2023-09-29 15:23 ==
LOC: MICIMG 15:22
PROVIDERS: PCP Otolaryngology; Visit Provider Otolaryngology
DX: H74.8X1 Other specified disorders of right middle ear and mastoid (principal); H90.6 Mixed conductive and sensorineural hearing loss, bilateral
CPT/HCPCS: 70480

== ENCOUNTER → 2024-07-27 09:17 | Outpatient (CLI) | payer OTHER, SELFPAY ==
--- NOTE | ~2024-07-27 | XR_ITS ---
Clinical Indication: Gastroesophageal reflux disease PA and lateral views of the chest: Comparison: 11/23/2022 Findings: The lungs are clear, without evidence of focal consolidation or pleural effusion. Cardiome diastinal silhouette is within normal limits. Bones and soft tissues are unremarkable. Impression: Normal chest. Reviewed, dictated and finalized at [facility]. Impression: Normal chest.
== END ==
PROVIDERS: Visit Provider Nurse Practitioner Family
DX: K21.9 Gastro-esophageal reflux disease without esophagitis (principal); R07.9 Chest pain, unspecified; R10.13 Epigastric pain
CPT/HCPCS: 71046

== ENCOUNTER 2024-07-30 16:57 | Emergency (ER) | payer OTHER, SELFPAY ==
--- NOTE | ~2024-07-30 | XR_ITS ---
CHEST RADIOGRAPH, PA AND LATERAL CLINICAL HISTORY: chest pain . COMPARISON: 07/27/2024 TECHNIQUE: PA and lateral views of the chest. FINDINGS The cardiomediastinal silhouette is unremarkable. The lungs are clear. Visualized osseous structures and soft tissues are unremarkable. IMPRESSION: No focal infiltrate or effusion. Reviewed, dictated and finalized at location A.
--- NOTE | 2024-07-30 17:02 | ECG_ITS ---
Test Date: 2024-07-30 17:09:48 Measurements Intervals [place] Rate: 72 P: 37 NC: 148 QRS: 35 QRSD: 77 T: -5 QT: 388 QTc: 427 Interpretive Statements SINUS RHYTHM NONSPECIFIC T-WAVE ABNORMALITY- ANT/INF LEADS BASELINE ARTIFACT- I, II, III, AVR, AVL, AVF BORDERLINE ECG No previous ECG available for comparison Electronically Signed On 07-30-2024 19:48:01 CDT by Eliu Wilson D.O.
[2024-07-30 17:04] VITALS: BP 134/90; PULSE 88; RESP 14; TEMP 36.6; O2SAT 100
[2024-07-30 17:33] LABS: Basophils Absolute Auto 0.1 K/mm3 (0.0-0.1); Basophils Percent Auto 1.1 % (0.2-1.2); Eosinophils Absolute Auto 0.4 K/mm3 (0-0.3); Eosinophils Percent Auto 4.9 % (0-4.4); Hematocrit 37.3 % (37.0-47.0); Hemoglobin 12.1 g/dL (12.0-15.0); Immature Granulocyte Absolute 0.01 K/mm3 (0.00-0.031); Immature Granulocyte Percent A 0.1 % (0-0.5); Lymphocytes Absolute Auto 2.67 K/mm3 (0.9-3.2); Lymphocytes Percent Auto 33.7 % (18.3-44.2); Mean Corpuscular HGB Conc 32.4 g/dl (32-36); Mean Corpuscular Hemoglobin 28.1 pg (26-34); Mean Corpuscular Volume 86.5 fl (80-100); Mean Platelet Volume 9.7 fl (7.4-10.4); Monocytes Absolute Auto 0.4 K/mm3 (0.1-0.6); Monocytes Percent Auto 5.5 % (2.6-8.5); Neutrophils Absolute Auto 4.3 K/mm3 (1.3-6.7); Neutrophils Percent Auto 54.7 % (45.5-73.1); Platelet Count Result 233 k/mm3 (150-375); Red Blood Count 4.31 M/mm3 (4.2-5.4); Red Cell Distribution Width 13.3 % (11.5-14.5); White Blood Count 7.9 K/mm3 (4.5-10.0)
[2024-07-30 17:44] LABS: Prothrombin Time 13.6 Seconds (11.1-14.7)
[2024-07-30 17:45] LABS: Partial Thromboplastin Time 27.9 Seconds (22.3-36.8)
[2024-07-30 17:54] LABS: Alanine Aminotransferase 21 U/L (6-35); Albumin Level 4.5 g/dL (3.5-5.1); Alkaline Phosphatase 41 U/L (38-126); Anion Gap 8 mmol/L (4-12); Aspartate Amino Transferase 22 U/L (14-36); Bilirubin,Total 0.3 mg/dL (0.2-1.3); Blood Urea Nitrogen 12 mg/dL (7-17); Calcium 9.2 mg/dL (8.4-10.2); Carbon Dioxide 27 mmol/L (22-30); Chloride 103 mmol/L (98-107); Estimated CRCL calculation 95 ml/min; Estimated Glomerular Filt Rate > 60; Glucose 101 mg/dL (65-110); Lipase 74 U/L (23-300); Potassium 4.4 mmol/L (3.4-5.0); Sodium 138 mmol/L (137-145)
--- NOTE | 2024-07-30 17:54 | ED_ITS ---
HPI - Chest Pain General Chief Complaint: Chest Pain <Loni Suarez PA-C - Last Filed: 07/31/24 10:59> Stated Complaint: chest pain and lightheaded x1.5week <Loni Suarez PA-C - Last Filed: 07/31/24 10:59> Time Seen by Provider: 07/30/24 17:54 <Lnoi Suarez PA-C - Last Filed: 07/31/24 10:59> Focused HPI: This is a 33 year old female that presents to the ER for chest pain. Reports lightheadedness, fatigue, foggy thoughts, shortness of breath, headaches. Ongoing over the last week. Reports she saw her doctor on Tuesday and had chest x-ray and blood work which showed hyponatremia. GENERAL: Well-appearing, well-nourished, and in no acute distress. HEAD: Normocephalic, atraumatic. CHEST: Clear to auscultation. ?No respiratory distress. HEART: Regular rate and rhythm.? NEURO: ?Alert and oriented x3. Patient screened in triage and initial orders placed.? ?Additional care and disposition to be based upon?diagnostic testing and treatment. <Loni Suarez PA-C - Last Filed: 07/31/24 10:59> History of Present Illness HPI narrative: Agree with the HPI above <Ja Rodriguez MD - Last Filed: 07/31/24 07:11> Related Data Home Medications: Home Medications ?Medication ?Instructions ?Recorded ?Confirmed ?Last Taken ?Type clonidine HCl 0.1 mg tablet 0.1 mg PO BID 04/29/22 07/27/24 Unknown History escitalopram oxalate 20 mg tablet 20 mg PO DAILY 04/29/22 07/27/24 Unknown History lamotrigine 200 mg tablet 200 mg PO QHS 04/29/22 07/27/24 Unknown History risperidone 0.25 mg tablet 0.25 mg PO QHS 04/29/22 07/27/24 Unknown History ferrous sulfate 325 mg (65 mg 325 mg PO DAILY 05/19/22 07/27/24 Unknown History iron) tablet <Loni Suarez PA-C - Last Filed: 07/31/24 10:59> Allergies/Adverse Reactions: Allergies Allergy/AdvReac Type Severity Reaction Status Date / Time adhesive Allergy Unknown RASH Verified 07/30/24 16:59 <Loni Suarez PA-C - Last Filed: 07/31/24 10:59> Review of Systems 2 Review of Systems: As reviewed above in HPI <Ja Rodriguez MD - Last Filed: 07/31/24 07:11> [facility] Past Medical History Medical History: Medical History History of bipolar disorder BMI 40.0-44.9, adult Diarrhea Pre-diabetes Sleep apnea History of brain tumor resolved Urinary tract infection <Loni Suarez PA-C - Last Filed: 07/31/24 10:59> Surgical History Surgical History: Surgical History History of colonoscopy 2022 hemorrhoids Hx of tonsillectomy <Loni Suarez PA-C - Last Filed: 07/31/24 10:59> Family History Family History: Family History Father Hypertension Psoriasis Kidney stones Mother Diabetes mellitus Heart problem Cancer Depression Cerebrovascular accident Acute myocardial infarction Sibling Acute myocardial infarction, Onset Age: 26 , Heart disease Grandparent Asthma Depression Heart problem Cerebrovascular accident Hypertension Alcoholism <Loni Suarez PA-C - Last Filed: 07/31/24 10:59> Social History Social History: Social History Smoking status: Never smoker Second hand tobacco smoke exposure: Yes Alcohol intake: never Substance use: never Substance use type: does not use Do You Feel Safe in your Home?: Yes Lack of Transportation: No Lack of Food: Never True Current Housing: I Have Housing Concerned About Future Housing: No Difficulty Paying Gas/Electric Bills: No Difficulty Paying for Meds: No Currently Unemployed: No Education: High School Diploma/GED Difficulty w/ Childcare or Family Care: No Living arrangements: with family Occupation/Education: occupation Additional occupation/education comments: [employer] Gender identity (if verbalized by the patient): Female Spiritual care concerns: No <Loni Suarez PA-C - Last Filed: 07/31/24 10:59> Exam 2 Narrative: GENERAL: [Well-appearing, well-nourished, and in no acute distress.] HEAD: [Normocephalic, atraumatic.] EYES: [PERRLA and EOMI.] ENT: Nares clear, no rhinorrhea or epistaxis. Mucous membranes moist. NECK: Supple. CHEST: [Clear to auscultation. No respiratory distress.] HEART: [Regular rate and rhythm]. No murmur heard. [Normal peripheral pulses.] ABDOMEN: [Soft, nondistended], [nontender], [No rigidity or guarding] EXTREMITIES: Normal range of motion. [No edema.] SKIN: Warm, dry, no rash. NEURO: [No focal deficits]. Alert and oriented [x3.] PSYCH: [Normal mood and affect.] <aJ Rodriguez MD - Last Filed: 07/31/24 07:11> Course Vital Signs Vital signs: Vital Signs Temperature 97.8 F 07/30/24 17:04 Pulse Rate 88 07/30/24 17:04 Respiratory Rate 14 07/30/24 17:04 Blood Pressure 134/90 07/30/24 17:04 Pulse Oximetry 100 07/30/24 17:04 Temperature 97.7 F 07/31/24 00:03 Pulse Rate 82 07/31/24 00:03 Respiratory Rate 16 07/31/24 00:03 Blood Pressure 118/64 07/31/24 00:03 Pulse Oximetry 97 07/31/24 00:03 Oxygen Delivery Room Air 07/30/24 23:23 <Loni Suarez PA-C - Last Filed: 07/31/24 10:59> Vital Signs Temperature 97.8 F 07/30/24 17:04 Pulse Rate 88 07/30/24 17:04 Respiratory Rate 14 07/30/24 17:04 Blood Pressure 134/90 07/30/24 17:04 Pulse Oximetry 100 07/30/24 17:04 Temperature 97.7 F 07/31/24 00:03 Pulse Rate 82 07/31/24 00:03 Respiratory Rate 16 07/31/24 00:03 Blood Pressure 118/64 07/31/24 00:03 Pulse Oximetry 97 07/31/24 00:03 Oxygen Delivery Room Air 07/30/24 23:23 <Ja Rodriguez MD - Last Filed: 07/31/24 07:11> MDM - Chest Pain MDM Narrative Medical decision making narrative: 33-year-old female presenting to the ER for evaluation of chest pain ongoing for about 1.5 weeks. She saw her regular doctor several days ago and underwent blood work that showed some hyponatremia. She is not any acute distress and has normal vital signs. Unremarkable clinical examination with clear symmetric breath sounds, no murmur on auscultation, strong symmetric pulses and warm extremities. Suspicion presently is for musculoskeletal chest pain, anxiety, less likely pneumonia or ACS. Low suspicion thromboembolic disease. She does not have any signs or symptoms of a DVT and can meet pulmonary embolism rule out criteria clinically. CBC, CMP, troponin, EKG and delta troponin ordered. EKG shows no signs of ischemia. Workup shows no leukocytosis or anemia. Normal platelet count. Coagulation studies normal. Normal LFTs, normal renal function, normal electrolytes. Negative initial and delta troponin. Chest x-ray shows no acute findings. EKG shows sinus rhythm. Patient re-evaluated and doing well. She can be safely discharged home at this time with follow-up with regular doctor. <Ja Rodriguez MD - Last Filed: 07/31/24 07:11> Medical Records Data Attestation: I reviewed the patient's medical records. <Ja Rodriguez MD - Last Filed: 07/31/24 07:11> Lab Data Attestation: I reviewed the patient's lab results. <Ja Rodriguez MD - Last Filed: 07/31/24 07:11> Result diagrams: 07/30/24 17:15 07/30/24 17:15 <Loni Suarez PA-C - Last Filed: 07/31/24 10:59> Labs: Lab Results 07/30/24 07/30/24 Range/Units 17:15 21:05 WBC 7.9 (4.5-10.0) K/mm3 RBC 4.31 (4.2-5.4) M/mm3 Hgb 12.1 (12.0-15.0) g/dL Hct 37.3 (37.0-47.0) % MCV 86.5 (80-100) fl MCH 28.1 (26-34) pg MCHC 32.4 (32-36) g/dl RDW 13.3 (11.5-14.5) % Plt Count 233 (150-375) k/mm3 MPV 9.7 (7.4-10.4) fl Immature Gran % (Auto) 0.1 (0-0.5) % Neut % (Auto) 54.7 (45.5-73.1) % Lymph % (Auto) 33.7 (18.3-44.2) % [place] % (Auto) 5.5 (2.6-8.5) % Eos % (Auto) 4.9 H (0-4.4) % Baso % (Auto) 1.1 (0.2-1.2) % Lymph # (Auto) 2.67 (0.9-3.2) K/mm3 [place] # (Auto) 0.4 (0.1-0.6) K/mm3 Eos # (Auto) 0.4 H (0-0.3) K/mm3 Baso # (Auto) 0.1 (0.0-0.1) K/mm3 Abs Immat Gran (auto) 0.01 (0.00-0.031) K/mm3 Absolute Neuts (auto) 4.3 (1.3-6.7) K/mm3 Absolute Nucleated RBC 0.000 (0.0-0.012) K/mm3 Nucleated RBC % 0.0 (0.0-0.2) % PT 13.6 (11.1-14.7) Seconds INR 1.0 APTT 27.9 (22.3-36.8) Seconds Sodium 138 (137-145) mmol/L Potassium 4.4 (3.4-5.0) mmol/L Chloride 103 (98-107) mmol/L Carbon Dioxide 27 (22-30) mmol/L Anion Gap 8 (4-12) mmol/L BUN 12 (7-17) mg/dL Creatinine 0.83 (0.7-1.0) mg/dL Estim Creat Clear Calc 95 ml/min Estimated GFR > 60 (59 - ) Glucose 101 (65-110) mg/dL Calcium 9.2 (8.4-10.2) mg/dL Total Bilirubin 0.3 (0.2-1.3) mg/dL AST 22 (14-36) U/L ALT 21 (6-35) U/L Alkaline Phosphatase 41 (38-126) U/L Troponin I < 0.012 < 0.012 (0.000-0.034) ng/mL Total Protein 8.0 (6.3-8.2) g/dL Albumin 4.5 (3.5-5.1) g/dL Lipase 74 (23-300) U/L <Loni Suarez PA-C - Last Filed: 07/31/24 10:59> Lab Results 07/30/24 07/30/24 Range/Units 17:15 21:05 WBC 7.9 (4.5-10.0) K/mm3 RBC 4.31 (4.2-5.4) M/mm3 Hgb 12.1 (12.0-15.0) g/dL Hct 37.3 (37.0-47.0) % MCV 86.5 (80-100) fl MCH 28.1 (26-34) pg MCHC 32.4 (32-36) g/dl RDW 13.3 (11.5-14.5) % Plt Count 233 (150-375) k/mm3 MPV 9.7 (7.4-10.4) fl Immature Gran % (Auto) 0.1 (0-0.5) % Neut % (Auto) 54.7 (45.5-73.1) % Lymph % (Auto) 33.7 (18.3-44.2) % [place] % (Auto) 5.5 (2.6-8.5) % Eos % (Auto) 4.9 H (0-4.4) % Baso % (Auto) 1.1 (0.2-1.2) % Lymph # (Auto) 2.67 (0.9-3.2) K/mm3 [place] # (Auto) 0.4 (0.1-0.6) K/mm3 Eos # (Auto) 0.4 H (0-0.3) K/mm3 Baso # (Auto) 0.1 (0.0-0.1) K/mm3 Abs Immat Gran (auto) 0.01 (0.00-0.031) K/mm3 Absolute Neuts (auto) 4.3 (1.3-6.7) K/mm3 Absolute Nucleated RBC 0.000 (0.0-0.012) K/mm3 Nucleated RBC % 0.0 (0.0-0.2) % PT 13.6 (11.1-14.7) Seconds INR 1.0 APTT 27.9 (22.3-36.8) Seconds Sodium 138 (137-145) mmol/L Potassium 4.4 (3.4-5.0) mmol/L Chloride 103 (98-107) mmol/L Carbon Dioxide 27 (22-30) mmol/L Anion Gap 8 (4-12) mmol/L BUN 12 (7-17) mg/dL Creatinine 0.83 (0.7-1.0) mg/dL Estim Creat Clear Calc 95 ml/min Estimated GFR > 60 (59 - ) Glucose 101 (65-110) mg/dL Calcium 9.2 (8.4-10.2) mg/dL Total Bilirubin 0.3 (0.2-1.3) mg/dL AST 22 (14-36) U/L ALT 21 (6-35) U/L Alkaline Phosphatase 41 (38-126) U/L Troponin I < 0.012 < 0.012 (0.000-0.034) ng/mL Total Protein 8.0 (6.3-8.2) g/dL Albumin 4.5 (3.5-5.1) g/dL Lipase 74 (23-300) U/L <Ja Rodriguez MD - Last Filed: 07/31/24 07:11> Imaging Data Attestation: I personally reviewed and interpreted this imaging study as follows: < Ja Rodriguez MD - Last Filed: 07/31/24 07:11> My impression: Impressions Chest X-Ray 07/30/24 17:27 IMPRESSION: No focal infiltrate or effusion. <Ja Rodriguez MD - Last Filed: 07/31/24 07:11> ECG Data EKG #1: Attestation: I personally reviewed and interpreted this ECG as follows: < Ja Rodriguez MD - Last Filed: 07/31/24 07:11> ECG completion date: 07/31/24 <Ja Rodriguez MD - Last Filed: 07/31/24 07:11> ECG completion time: 21:01 <Ja Rodriguez MD - Last Filed: 07/31/24 07:11> Prior ECG tracings: available for review <Ja Rodriguez MD - Last Filed: 07/31/24 07:11> Interpretation: No ST segment elevations, depressions. QTC 458, QRS 77, AR interval 154, rate of 81 beats per minute. Final interpretation normal sinus rhythm. No significant interval change compared to prior EKG in the chart. <Ja Rodriguez MD - Last Filed: 07/31/24 07:11> Critical Care Time Critical Care Time Critical Care Time: No <Loni Suarez PA-C - Last Filed: 07/31/24 10:59> Discharge Plan Discharge Clinical Impression: Chest pain Qualifiers: Chest pain type: unspecified Qualified Code(s): R07.9 - Chest pain, unspecified <Loni Suarez PA-C - Last Filed: 07/31/24 10:59> Patient Disposition: Home <Loni Suarez PA-C - Last Filed: 07/31/24 10:59> Condition: Stable <Loni Suarez PA-C - Last Filed: 07/31/24 10:59> Instructions: Antibiotic Form, Chest Pain (ED) <COBY Plasencia Last Filed: 07/31/24 10:59> Additional Instructions: All of your laboratory studies and cardiac markers are normal. Follow-up with your regular doctor. Return with any new or worsening concerns at any time. <Loni Suarez PA-C - Last Filed: 07/31/24 10:59> Patient Language: Latvian <COBY Plasencia Last Filed: 07/31/24 10:59> Prescriptions: No Action omeprazole 40 mg capsule,delayed release(DR/EC) 40 mg PO DAILY 42 Days Qty: 42 0RF clonidine HCl 0.1 mg tablet 0.1 mg PO BID lamotrigine 200 mg tablet 200 mg PO QHS risperidone 0.25 mg tablet 0.25 mg PO QHS escitalopram oxalate 20 mg tablet 20 mg PO DAILY cholecalciferol (vitamin D3) 50 mcg (2,000 unit) capsule 100 mcg PO DAILY Qty: 60 6RF ferrous sulfate 325 mg (65 mg iron) Tablet 325 mg PO DAILY albuterol sulfate 90 mcg/actuation HFA aerosol inhaler 2 puff inhalation Q4H PRN (Reason: Shortness Of Breath) Qty: 8.5 3RF (DME) FreeStyle Zeyad 3 Plus Sensor Device See Rx Instructions .Route Qty: 1 12RF Rx Instructions: As directed (DME) FreeStyle Zeyad 3 [place] Misc See Rx Instructions .Route Qty: 1 0RF Rx Instructions: As directed <Loni Suarez PA-C - Last Filed: 07/31/24 10:59> Follow-up/Referrals: Cammie Guadarrama [Primary Care Provider] - <Loni Suarez PA-C - Last Filed: 07/31/24 10:59> Time of Disposition: 23:44 <Loni Suarez PA-C - Last Filed: 07/31/24 10:59> 23:44 <Ja Rodriguez MD - Last Filed: 07/31/24 07:11>
[2024-07-30 18:06] LABS: Troponin I < 0.012 ng/mL (0.000-0.034)
--- OUTSIDE RECORDS SUMMARY | 2024-07-30 18:28 | XMS_ITS | Encounter Summary ---
Author Organization [facility] Address [address] [place] [address] Care Team Providers Care Track Inspector Name Role Phone Amberly Keen Primary Care Provider [phone] Henrique Fraser MD Unavailable [phone] Encounter Details Date Type Department Care Team (Late st Contact Info) Description 09/29/2022 [employer] Message Formerly [facility] [address] [place] [address] [employer], [facility] Provider Air Quality Message Social History Tobacco Use Types Packs/Day Years Used Date Smoking Tobacco: Never Smokeless Tobacco: Never Comments:Never Smoked Alcohol Use Standard Drinks/Week Comments No 0 (1 standard drink = 0.6 oz pur e alcohol) NA AUDIT-C Answer Date Recorded Frequency of Alcohol Consumption Never 02/08/2018 Average Number of Drinks Not on file 018 Frequency of Binge Drinking Not on file 0 10/2017 PHQ-2 Answer Date Recorded PHQ-2 Score - If the patient scores above 3, please move on to questions 3-9 0 12/24/2021 Comments No Sex and Gender Information Value Date Recorded Sex Assigned at Not on file Legal Sex Female 7:55 AM CDT Gender Identity Not on file Sexual Orientation Not on file documented as of this encounter Plan of Treatment Not on file documented as of this encounter Visit Diagnoses Not on filedocumented in this encounter Care Teams Track Inspector Relationship Specialty Start Date End Date Amberly Keen APNP Family & Internal Medicine [address] [address] PCP - General NURSE PRACTITIONER 12/16/17 Henrique Fraser MD [facility] [address] [place] [address] [place] [employer] CARDIOVASCULAR DISEASE 11/21/18 documented as of this encounter
--- OUTSIDE RECORDS SUMMARY | 2024-07-30 18:28 | XMS_ITS | Data Portability ---
Author Organization [facility] [place] Address [address] [place] [address] Care Team Providers Care Solid Waste Manager Name Role Phone RADHA ROGERS Primary Care Provider Assessment Encounter Date Assessment Date Assessment LastModified by Organization Details LastModified Time 05/12/2022 05/12/2022 f/u wwe or as needed, call if needs additional appt [email or web address] Not available 05/12/2022 18:06:14 02/28/2024 02/28/2024 Annual gynecological exam performed. Patient will come back in a year unless there are new symptoms. [email or web address] Not available 02/28/2024 09:37:30 Plan of Treatment Reminders Order Date Submit Date Provider Last Modified By Organization Details Last Modified Time Details Appointments None recorded . Lab culture, urine 2023 [facility] (Lab), [address], [place], [address], 13:00:32 urinalys is, dipstick 2023 024 [email or web address] [address], [address], [place], [address], 10:40:40 pap, IG + HR HPV - HPV regardle ss but if HPV is positive need subtypin g 16,18/45 2023 024 [facility] (Lab), [address], [place], [address], 4 13:00:32 urinalys is, dipstick 2023 [address] [email or web address], [address], [place], [address], 4 16:53:25 urinalys is, dipstick 2023 024 [email or web address] [address], [address], [place], [address], 4 11:05:[address] referral - Irregula r bowel habitsPl ease contact this patient to schedule an appointm ent.Bubba ched are the patients demograp hics, most recent office visit notes and ultrasou nd results. If you have any question s. please contact me at [phone].Th ank you,Dov bee, Referral 's 2022 023 [facility], [address], [address], [place], [address], 3 10:51:51 Procedures None recorded . Surgeries None recorded . Imaging None recorded . Medication Orders metronid azole 500 mg tablet [address] , [place], [address], 4 16:51:15 Patient TargetsNo targets recorded. Patient InstructionsNo instructions recorded. Reason for Referral Lean Facilitator Referral for Irregular bowel habits Irregular bowel habits Irregular bowel habitsPlease contact this patient to schedule an appointment.Attached are the patients demographics, most recent office visit notes and ultrasound results.If you have any questions. please contact me at [phone].Thank you,Louisa, Referral's Referring Physician: Cindy Alexander, BLEACHER SULF[facility] PULP, Encounter Date: 04/22/2022 Results Created Date Observation Date Name Description Value Unit Range Abnormal Flag Note LastModifiedBy Organization Detail LastModifiedTime 04/07/19 23 04/07/2022 IMAGE GUIDE D PAP AND HPV REGAR DLESS image guided Pap, HPV regardless of Pap result SEE RESULT S BELOW CASE REPOR T: Cytol ogy Gynec ologi harjinder Repor t Case: [id number] Autho nhan barger Provi gisella: Amna Norton NP Colle cted: 04/07 1856 Order ing Locat ion: [place] Patho logy Recei evelyn: 04/08 0241 First Scree n: Jayne Waldrop, CT Speci men: Christian bustos Pap - Image d, Cervi x STATE MENT OF ADEQU ACY: Satis facto ry for evalu ation Trans forma tion zone compo nent prese nt FINAL DIAGN OSIS: Negat silva for Intra epith elial Lesio n or Karina ceja (NIL) . Elect kaveh richey seng d by Jayne Waldrop, CT on 023 at 4:37 PM ----- ----- ----- ----- ----- ----- ----- ----- ----- ----- ----- ----- ----- ----- ----- ----- ----- ---- HPV RESUL TS: HPV mRNA E6/E7 : No HPV mRNA Detec enoch NOTE: This high risk HPV mRNA assay detec ts fourt een high- risk HPV types (16, 18, 31, 33, 35, 39, 45, 51, 52, 56, 58, 59, 66, 68) witho ut diffe renti ation . COMME NT: Note: This speci men was revie wed by a Cytot echno logis t and/o r Patho logis t (as indic ated in this repor t) after evalu ation using the Thinp rep Imagi ng Syste m. CLINI HARJINDER INFOR MATIO N: Menst rual Statu s: LMP (if appli cable ): Clini harjinder Histo ry/Pr eviou s Pap: Type of Neopl jonatan (if appli cable ): Signi fican t Clini harjinder Findi ngs: Other Histo ry: Hormo rowdy (if appli cable ): PAP EDUCA DOROTEO L NOTE: The Pap Test is a scree akash test with an inher ent false negat silva rate. Liqui d-bas ed sampl ing may decre ase, but will not elimi albino, false negat silva resul ts. A negat silva resul t does not precl ude the prese nce and/o r devel opmen t of disea se, since the prese nce of abnor mal cells in the sampl e depen ds on the locat ion of the lesio n and sampl ing techn ique. Emily nued regul ar scree akash is the best metho d of cance r preve ntion . If repor enoch cytol ogic findi ng do not corre late with physi harjinder and/o r histo rical findi ngs, furth er inves tigat ion is recom massiel d, as clini charity warra nted. Not Available [facility] (Lab) [address] [facility], [place], [address], 04/08/2022 17:40:39 04/07/19 23 04/07/2022 URINA LYSIS , WITH MICRO SCOPI C color, urine Light Yellow Not Available [facility] (Lab) [address] [place], [address], 04/09/2022 14:38:08 04/07/19 23 04/07/2022 URINA LYSIS , WITH MICRO SCOPI C clarity, urine Clear Not Available [facility] (Lab) [address] [place], [address], 04/09/2022 14:38:08 04/07/19 23 04/07/2022 URINA LYSIS , WITH MICRO SCOPI C glucose, urine Normal mg/dL negati ve Not Available [facility] (Lab) [address] [place], [address], 04/09/2022 14:38:08 04/07/19 23 04/07/2022 URINA LYSIS , WITH MICRO SCOPI C bilirubin, urine Negati ve negati ve Not Available [facility] (Lab) [address], [place], [address], 04/09/2022 14:38:08 04/07/19 23 04/07/2022 URINA LYSIS , WITH MICRO SCOPI C ketones, urine Negati ve mg/dL negati ve Not Available [facility] (Lab) [address], [place], [address], 04/09/2022 14:38:08 04/07/19 23 04/07/2022 URINA LYSIS , WITH MICRO SCOPI C specific gravity, urine 1.024 . 1.005- 1.035 Not Available [facility] (Lab) [address], [place], [address], 04/09/2022 14:38:08 04/07/19 23 04/07/2022 URINA LYSIS , WITH MICRO SCOPI C blood, urine Negati ve negati ve Not Available [facility] (Lab) [address], [place], [address], 04/09/2022 14:38:08 04/07/19 23 04/07/2022 URINA LYSIS , WITH MICRO SCOPI C pH, urine 6.0 . 5.0-7. 0 Not Available [facility] (Lab) [address], [place], [address], 04/09/2022 14:38:08 04/07/19 23 04/07/2022 URINA LYSIS , WITH MICRO SCOPI C protein, UA 10 mg/dL negati ve, 10-20 Not Available [facility] (Lab) [address] [facility], [place], [address], 04/09/2022 14:38:08 04/07/19 23 04/07/2022 URINA LYSIS , WITH MICRO SCOPI C nitrite, urine Negati ve negati ve Not Available [facility] (Lab) [address] [facility], [place], [address], 04/09/2022 14:38:08 04/07/19 23 04/07/2022 URINA LYSIS , WITH MICRO SCOPI C leukocyte esterase, urine Negati ve jasiel/u L negati ve Not Available [facility] (Lab) [address] [facility], [place], [address], 04/09/2022 14:38:08 04/07/19 23 04/07/2022 URINA LYSIS , WITH MICRO SCOPI C urobilinogen , urine Normal mg/dL normal , <2.0 Not Available [facility] (Lab) [address] [facility], [place], [address], 04/09/2022 14:38:08 04/07/19 23 04/07/2022 URINA LYSIS , WITH MICRO SCOPI C RBC, urine 0-2 /hpf none, 0-2 Not Available [facility] (Lab) [address] [facility], [place], [address], 04/09/2022 14:38:08 04/07/19 23 04/07/2022 URINA LYSIS , WITH MICRO SCOPI C WBC, urine 0-5 /hpf none, 0-5 Not Available [facility] (Lab) [address] [facility], [place], [address], 04/09/2022 14:38:08 04/07/19 23 04/07/2022 URINA LYSIS , WITH MICRO SCOPI C squamous epithelial cells, urine Few /hpf none abnormal Not Available [facility] (Lab) [address] [facility], [place], [address], 04/09/2022 14:38:08 04/07/19 23 04/07/2022 URINA LYSIS , WITH MICRO SCOPI C bacteria, urine None /hpf none Not Available [facility] (Lab) [address] [facility], [place], [address], 04/09/2022 14:38:08 04/07/19 23 04/07/2022 URINA LYSIS , WITH MICRO SCOPI C hyaline cast, urine None /lpf none, 0-2 Not Available [facility] (Lab) [address] [facility], [place], [address], 04/09/2022 14:38:08 04/07/19 23 04/07/2022 CULTU RE: URINE result report SEE RESULT S BELOW Test: Cultu re: Urine Speci men Sourc e: Urine Voide d Speci men Type: Urine Speci men Date: 023 6:47 PM Resul t Date: 023 1:35 PM Resul t Statu s: Final resul t Abnor mal: No Resul ting Lab: [facility] [address] [facility] [address] Tel: CULTU RE ----- ----- ----- --- Cultu re resul t (>=3 organ isms prese nt) indic ates possi ble conta minat ion. Repea t cultu re if sympt oms indic ate. Not Available [facility] (Lab) [address] , [place], [address], 04/09/2022 14:38:08 04/07/1904/07/2022 urina lysis , dipst ick Leukocytes trace Not Available Yaritza eden [address], [place], [address], 04/07/2022 19:23:00 04/07/1904/07/2022 urina lysis , dipst ick Nitrite normal Not Available [place] [address], [place], [address], 04/07/2022 19:23:00 04/07/19 23 04/07/2022 urina lysis , dipst ick Urobilinogen normal Not Available Kina brownlee [address], [place], [address], 04/07/2022 19:23:00 04/07/19 23 04/07/2022 urina lysis , dipst ick Protein trace Not Available [place] [address], [place], [address], 04/07/2022 19:23:00 04/07/19 23 04/07/2022 urina lysis , dipst ick pH 5 Not Available [place] [address], [place], [address], 04/07/2022 19:23:00 04/07/19 23 04/07/2022 urina lysis , dipst ick Specific [place] 1.020 Not Available [facility] [address], [place], [address], 04/07/2022 19:23:00 04/07/19 23 04/07/2022 urina lysis , dipst ick Ketone normal Not Available [place] [address], [place], [address], 04/07/2022 19:23:00 04/07/19 23 04/07/2022 urina lysis , dipst ick Bilirubin normal Not Available Horace travis [address], [place], [address], 04/07/2022 19:23:00 04/07/19 23 04/07/2022 urina lysis , dipst ick Glucose nromal Not Available [place] [address], [place], [address], 04/07/2022 19:23:00 04/07/19 23 04/07/2022 urina lysis , dipst ick Appearance normal Not Available Yaritza eden [address], [place], [address], 04/07/2022 19:23:00 04/07/19 23 04/07/2022 urina lysis , dipst ick Color nromal Not Available [place] [address], [place], [address], 04/07/2022 19:23:00 04/09/19 23 04/09/2022 CT/GC AND TRICH OMONA S VAGIN DEVIKA (RRNA ), URINE chlamydia trachomatis, PCR Negati ve negati ve Not Available [facility] (Lab) [address] [facility], [place], [address], 04/10/2022 13:16:55 04/09/19 23 04/09/2022 CT/GC AND TRICH OMONA S VAGIN DEVIKA (RRNA ), URINE neisseria gonorrhoeae, PCR Negati ve negati ve Not Available [facility] (Lab) [address] [facility], [place], [address], 04/10/2022 13:16:55 04/09/19 23 04/09/2022 CT/GC AND TRICH OMONA S VAGIN DEVIKA (RRNA ), URINE trichomonas vaginalis ribosomal RNA (rrna) Negati ve negati ve Not Available [facility] (Lab) [address] [facility], [place], [address], 04/10/2022 13:16:55 04/09/19 23 04/09/2022 pregn eduardo test, urine HCG negati ve Not Available [place] [address], [place], [address], 04/09/2022 09:13:58 04/22/1904/22/2022 CULTU RE: URINE result report SEE RESULT S BELOW Test: Cultu re: Urine Speci men Sourc e: Urine Voide d Speci men Type: Urine Speci men Date: 2022 1:44 PM Resul t Date: 2022 6:15 AM Resul t Statu s: Final resul t Abnor mal: No Resul ting Lab: [facility] [address] [facility] [address] Tel: CULTU RE ----- ----- ----- --- No growt h in 1 day (dete ction level of 10,00 0 colon ies / ml.) Not Available [facility] (Lab) [address], [place], [address], 04/24/2022 07:18:34 05/04/19 24 05/04/2023 CULTU RE: URINE result report SEE RESULT S BELOW abnormal Test: Cultu re: Urine Speci men Sourc e: Urine Voide d Speci men Type: Urine Speci men Date: 2023 4:34 PM Resul t Date: 024 2:04 PM Resul t Statu s: Final resul t Abnor mal: Yes Resul ting Lab: [facility] [address] [facility] [address] Tel: CULTU RE ----- ----- ----- --- 25,00 0-50, 000 CFU/m l Strep tococ cus agala ctiae (Grou p B) (Abno rmal) Strep tococ cus agala ctiae (Beta strep Group B Strep ) remai ns unive rsall y susce ptibl e to penic illin , cefaz adelita and vanco mycin . If clind guillermo zhong is being consi dered for intra partu m proph ylaxi s, pleas e conta ct the lab withi n 5 days. Not Available [facility] (Lab) [address] , [place], [address], 05/06/2023 15:07:35 05/04/19 24 05/04/2023 urina lysis , dipst ick Leukocytes + Not Available Yaritza eden [address], [place], [address], 05/04/2023 11:03:17 05/04/19 24 05/04/2023 urina lysis , dipst ick pH 5 Not Available [address], [place], [address], 05/04/2023 11:03:17 05/04/19 24 05/04/2023 urina lysis , dipst ick Blood ++ Not Available [place] [address], [place], [address], 05/04/2023 11:03:17 05/04/19 24 05/04/2023 urina lysis , dipst ick Specific [place] 1.010 Not Available [facility] k[address], [place], [address], 05/04/2023 11:03:17 07/06/19 24 07/06/2023 urina lysis , dipst ick Leukocytes + Not Available [facility] ed[facility] [address], [place], [address], 07/06/2023 16:53:15 07/06/19 24 07/06/2023 urina lysis , dipst ick Blood trace Not Available [place] [address], [place], [address], 07/06/2023 16:53:15 02/28/20 24 02/28/2024 CULTU RE: URINE result report SEE RESULT S BELOW Test: Cultu re: Urine Speci men Sourc e: Urine - Clean Catch Speci men Type: Urine Speci men Date: 02/27 1038 Resul t Date: 03/01 0632 Resul t Statu s: Final resul t Abnor mal: No Resul ting Lab: [facility] [address] [facility] [address] Tel: CULTU RE ----- ----- ----- --- No growt h in 1 day (dete ction level of 10,00 0 colon ies / ml.) Not Available [facility] (Lab) [address] [facility], [place], [address], 03/10/2024 13:00:32 02/28/20 24 02/28/2024 IMAGE GUIDE D PAP AND HPV REGAR DLESS image guided Pap, HPV regardless of Pap result SEE RESULT S BELOW CASE REPOR T: Cytol ogy Gynec ologi harjinder Repor t Case: [id number] Autho nhan denita Provi gisella: Loni Aldana , ANP, EDUCATION ASSISTANT Colle cted: 02/27 1038 Order ing Locat ion: [place] Patho logy Recei evelyn: 02/28 1456 First Scree n: Kiara Bolden ret, CT Speci men: Christian bustos Pap - Image d, Cervi x STATE MENT OF ADEQU ACY: Satis facto ry for evalu ation Trans forma tion zone compo nent prese nt ----- ----- ----- ----- ----- ----- ----- ----- ----- ----- ----- ----- ----- ----- ----- ----- ----- ---- FINAL DIAGN OSIS: Negat silva for Intra epith elial Lesbrady zhong or Karina ceja (NIL) . Elect kaveh rihcey seng d by Kiara Bolden ret, CT on 2023 at 11:57 AM ----- ----- ----- ----- ----- ----- ----- ----- ----- ----- ----- ----- ----- ----- ----- ----- ----- ---- HPV RESUL TS: HPV mRNA E6/E7 : No HPV mRNA Detec enoch NOTE: This high risk HPV mRNA assay detec ts fourt een high- risk HPV types (16, 18, 31, 33, 35, 39, 45, 51, 52, 56, 58, 59, 66, 68) witho ut diffe renti ation . COMME NT: This speci men was revie wed by a Cytot echno logis t and/o r Patho logis t (as indic ated in this repor t) after evalu ation using the Thinp rep Imagi ng Syste m. CLINI HARJINDER INFOR MATIO N: Menst rual Statu s: LMP (if appli cable ): Clini harjinder Histo ry/Pr eviou s Pap: Type of Neopl jonatan (if appli cable ): Signi fican t Clini harjinder Findi ngs: Other Histo ry: Hormo rowdy (if appli cable ): PAP EDUCA DOROTEO L NOTE: The Pap Test is a scree akash test with an inher ent false negat silva rate. Liqui d-bas ed sampl ing may decre ase, but will not elimi albino, false negat silva resul ts. A negat silva resul t does not precl ude the prese nce and/o r devel opmen t of disea se, since the prese nce of abnor mal cells in the sampl e depen ds on the locat ion of the lesio n and sampl ing techn ique. Emily nued regul ar scree akash is the best metho d of cance r preve ntion . If repor enoch cytol ogic findi ng do not corre late with physi harjinder and/o r histo rical findi ngs, furth er inves tigat ion is recom massiel d, as clini charity quick nted. Not Available [facility] (Lab) [address], [place], [address], 03/10/2024 13:00:32 02/28/20 24 02/28/2024 urina lysis , dipst ick Leukocytes - Not Available Yaritza eden [address], [place], [address], 02/28/2024 10:40:08 02/28/20 24 02/28/2024 urina lysis , dipst ick Nitrite - Not Available [address] [place], [address], 02/28/2024 10:40:08 02/28/20 24 02/28/2024 urina lysis , dipst ick Urobilinogen - Not Available Kina brownlee [address], [place], [address], 02/28/2024 10:40:08 02/28/20 24 02/28/2024 urina lysis , dipst ick Protein trace Not Available [place] [address], [place], [address], 02/28/2024 10:40:08 02/28/20 24 02/28/2024 urina lysis , dipst ick pH 5 Not Available [place] [address], [place], [address], 02/28/2024 10:40:08 02/28/20 24 02/28/2024 urina lysis , dipst ick Specific [place] 1.020 Not Available [facility] katie [address], [place], [address], 02/28/2024 10:40:08 02/28/20 24 02/28/2024 urina lysis , dipst ick Ketone - Not Available [place] [address], [place], [address], 02/28/2024 10:40:08 02/28/20 24 02/28/2024 urina lysis , dipst ick Bilirubin - Not Available [facility] [address], [place], [address], 02/28/2024 10:40:08 02/28/20 24 02/28/2024 urina lysis , dipst ick Glucose - Not Available [place] [address], [place], [address], 02/28/2024 10:40:08 02/28/20 24 02/28/2024 urina lysis , dipst ick Appearance clear Not Available Yaritza eden [address], [place], [address], 02/28/2024 10:40:08 02/28/20 24 02/28/2024 urina lysis , dipst ick Color light yellow Not Available [place] [address], [place], [address], 02/28/2024 10:40:08 04/20/19 23 04/20/2022 US, trans vagin al No observ ation record ed. [email or web address] [place] [address], [place], [address], 04/20/2022 17:57:42 04/20/19 23 04/20/2022 US, trans vagin al No observ ation record ed. NATALIE Diane [address], [place], [address], 04/24/2022 11:46:39 Result Notes None recorded. Problems Name Problem SNOMED Code Status Onset Date Resolution Date Notes Provider Name and Address Organization Details Recorded Time SNOMED CT Concept Completed 201502/19/2021 Encntr for general adult medical exam w/o abnormal findings ;Recorde d Elsewher e: No Locat ion: [facility] S ource: EHR Directional Driller lv: N Practi ce ID: 0001 Ortega lable Time: 02:30:00 PM [facility]:51:50 Insertio n of intraute rine contrace ptive device Completed 201202/19/2021 INSERTIO N OF IUD;Vinod rded Elsewher e: No Locat ion: [facility] S ource: [employer] Directional Driller lv: N Practi ce ID: 0001 Ortega lable Time: 11:30:00 AM Diane wise [facility] 17:51:09 Contrace ptive sheath status [id number] Completed 201702/19/2021 IUD follow up;Recor ded Elsewher e: No Locat ion: [facility] S ource: [employer] lv: N Kirsten ce ID: 0001 Ortega lable Time: 02:30:00 PM Diane wise, [facility] 1 17:51:06 Breast lump Completed 201902/19/2021 Fibrocys tic disease of breast;R ecorded Elsewher e: No Locat ion: [facility] S ource: [facility] lv: N Ravindrati ce ID: 0001 Ortega lable Time: 03:15:00 PM Diane wise, [facility] 1 17:51:02 Speciali zed medical examinat ion Completed 201102/19/2021 Gynecolo gical Examinat ion;Vinod rded Elsewher e: No Locat ion: [facility] S ource: [facility] lv: Cecilia Curtis ce ID: 0001 Ortega lable Time: 01:45:00 PM Diane wise, [facility] 1 17:51:55 Breast lump [id number] Completed 201802/19/2021 Lump in breast;R ecorded Elsewher e: No Locat ion: [facility] S ource: [facility] lv: Cecilia Curtis ce ID: 0001 Ortega lable Time: 10:30:00 AM Diane wise, [facility] 1 17:51:04 Pelvic and perineal pain [id number] Completed 201802/19/2021 Pelvic and perineal pain;Rec orded Elsewher e: No Locat ion: [facility] S ource: [facility] lv: Cecilia Waiteti ce ID: 0001 Ortega lable Time: 02:00:00 PM Diane wise, [facility] 17:51:28 Screenin g for malignan t neoplasm of cervix Completed 201102/19/2021 Screenin g for malignan t neoplasm s of the cervix;R ecorded Elsewher e: No Locat ion: Nancysteffanieyvonne travis [facility] S ource: EHR Directional Driller lv: N Practi ce ID: 0001 Ortega lable Time: 01:45:00 PM Dinae wise [facility] 1 17:51:34 Lump in upper inner quadrant of left breast [id number] Completed 201702/19/2021 Unspecif ied lump in the left breast, upper inner quadrant ;Recorde d Elsewher e: No Locat ion: [facility] S ource: EHR Directional Driller lv: N Practi ce ID: 0001 Ortega lable Time: 01:30:00 PM Diane wise [facility] 1 17:51:24 Removal of intraute rine device Completed 201202/19/2021 REMOVAL OF IUD;Vinod rded Elsewher e: No Locat ion: [facility] S ource: EHR Directional Driller lv: N Practi ce ID: 0001 Ortega lable Time: 11:45:00 AM Diane wise [facility] [address] 17:51:[address] Concept Completed 201702/19/2021 Encntr for car oiler exam (general ) (routine ) w/o abn findings ;Recorde d Elsewher e: No Locat ion: [facility] S ource: EHR Directional Driller lv: N Practi ce ID: 0001 Ortega lable Time: 01:00:00 PM Diane wise [facility] 1 17:51:52 Neoplasm of uncertai n behavior of skin [id number] Completed 201202/19/2021 Neoplasm of uncertai n behavior of skin;Rec orded Elsewher e: No Locat ion: [facility] S ource: EHR Directional Driller lv: N Practi ce ID: 0001 Ortega lable Time: 11:00:00 AM Diane wise [facility] 17:51:26 Internal hemorrho ids [id number] Completed 201202/19/2021 Internal hemorrho ids with other complica tion;Rec orded Elsewher e: No Locat ion: [facility] thaddeus [facility] S ource: EHR Directional Driller lv: N Ravindrati ce ID: 0001 Ortega lable Time: 11:00:00 AM Diane Burnham [facility], [facility] 17:51:11 Right lower quadrant pain [id number] Completed 201202/19/2021 Abdomina l pain, right lower quadrant ;Recorde d Elsewher e: No [facility]at ion[facility] Ravindrati ce ID: 0001 Ortega lable Time: 10:00:00 AM Diane Burnham [facility], [facility] 17:51:33 Pregnanc y test negative [id number] Completed 201702/19/2021 Encounte r for pregnanc y test, result negative ;Recorde d Elsewher e: No Locat ion: [facility] S ource: EHR Directional Driller lv: N Ravindrati ce ID: 0001 Ortega lable Time: 11:00:00 AM Diane Burnham frandy, [facility] 17:51:30 Female genital organ symptoms [id number] Completed 201202/19/2021 Unspecif ied symptom associat ed with female genital organs;R ecorded Elsewher e: No Locat ion: [facility] S ource: EHR Directional Driller lv: N Ravindrati ce ID: 0001 Ortega lable Time: 03:00:00 PM Diane Burnham frandy, [facility] 17:51:07 Adult health examinat ion Completed 201302/19/2021 ROUTINE MEDICAL EXAM;Rec orded Elsewher e: No Locat ion: [facility] S ource: EHR Directional Driller lv: N Ravindrati ce ID: 0001 Ortega lable Time: 11:30:00 AM Diane wise, [facility] 17:50:54 Vaginiti s and vulvovag initis Completed 201302/19/2021 Vaginiti s;Record ed Elsewher e: No Locat ion: Horace travis [facility] S ource: EHR Directional Driller lv: N Practi ce ID: 0001 Oretga lable Time: 11:30:00 AM Diane wise, [facility] 17:51:57 Body mass index 30+ - obesity 884384406 Completed 201902/19/2021 Diane wise, [facility] 17:51:00 Bipolar disorder 62331426 Completed 201902/19/2021 Diane wise, [facility] 17:50:58 Asthma 976998177 Completed 201902/19/2021 Diane wise, [facility] 17:50:56 Sleep apnea 25127147 Completed 201902/19/2021 Diane wise, [facility] 17:51:47 Intraute rine contrace ptive device in situ 683632163 Completed 201702/19/2021 Diane wise, [facility] 17:51:49 Moderate bipolar disorder 48648107 Active 2021 Gwen Orantes MD [address], [place], [address], [facility] 2 11:35:01 Intraute rine contrace ptive device procedur e Active 2021 Gwen Orantes MD [address], [place], [address], [facility] 2 11:35:34 Dysphoni a of Gage de la Tourette 's syndrome 08054062 Active 2022 Diane wise, [facility] 3 19:19:25 Mixed anxiety and depressi ve disorder 224717955 Active 2022 Diane wise, [facility] 3 19:19:38 Problem Notes None recorded. Procedures Surgical History Date Name Laterality Status Provider Name and Address Organization Details Recorded Time 04/09/19 23 IUD Removal completed Amna Dixon CNM [address], [place], [address], [facility] 04/09/2022 10:35:56 04/09/19 23 IUD Insertion completed Amna Dixon CNM [address], [place], [address], [facility] 04/09/2022 10:35:50 04/07/19 23 Date of Last Pap Smear completed Lydia Borges [facility] 05/04/2023 10:56:45 11/07/19 21 Date of Last Mammogram completed Diane Burnham [facility] 02/19/2021 17:54:14 04/04/19 19 Tonsillectomy completed Diane Burnham [facility] 10/10/2020 17:56:34 04/04/19 14 completed Diane Burnham [facility] 03/04/2021 11:59:20 04/04/19 14 Date of Last Colonoscopy completed Diane Burnham [facility] 04/07/2022 19:20:29 04/04/19 14 Colonoscopy completed Diane Burnham [facility] 03/04/2021 12:00:21 Imaging Results Imaging Date Name Status LastModified by Organization Details LastModified Time 04/20/2022 US, transvaginal completed [email or web address] Horace travis [address], [place], [address], 04/20/2022 17:57:42 04/20/2022 US, transvaginal completed NATAILE Roxi [address], [place], [address], 04/24/2022 11:46:39 Procedure Notes None recorded. Medical Equipment None Reported. Allergies No known drug allergies Medications Name Sig Start Date Stop Date Status Note LastModified by Organization Details LastModified Time vitamin d3 (dakota) 50mcg cap TAKE 2 CAPSULES BY MOUTH ONCE DAILY 02/27 completed Not Available Not Available Not Available amoxicill in 500 mg capsule Take 1 capsule every 12 hours by oral route. 08/26 completed Never took this abx, went to ER and was prescrib ed cephalex in 500mg x7 days plus IV abx while at the hospital . Not Available Not Available Not Available Mirena 21 mcg/24 hr (up to 8 years) 52 mg intrauter ine device Take 1 device by intraute rine route. 2022 active mirena IUD inserted 04/09/2022 and needs removed 04/09/2030 Not Available Not Available Not Available metformin 500 mg tablet Take 1 tablet twice a day by oral route. 07/05 completed Not Available Not Available Not Available clonidine HCl 0.1 mg tablet TAKE 1 TABLET BY MOUTH TWICE DAILY active Not Available Not Available No t Available lamotrigi ne 200 mg tablet TAKE 1 & 1/2 (ONE & ONE-HALF ) TABLETS BY MOUTH ONCE DAILY FOR 90 DAYS 02/27 completed Not Available Not Available Not Available clonidine 0.1 mg/24 hr weekly transderm al patch apply 1 patch by transder mal route every week 02/26 completed Prescrib ed Elsewher e: Yes Loca tion: Horace travis [facility] M odify By: radha Travis ncounter DateTime : 12/04/19 16 02:30:00 PM Not Available Not Available Not Available clindamyc in HCl 300 mg capsule TAKE 1 CAPSULE BY MOUTH 4 TIMES DAILY UNTIL GONE 02/27 completed Not Available Not Available Not Available azithromy gabe 250 mg tablet ZPAK; 08/21 completed Not Available Not Available Not Available ibuprofen 800 mg tablet TAKE 1 TABLET BY MOUTH THREE TIMES A DAY NEEDED FOR PAIN 04/07 completed Not Available Not Available Not Available hydrocodo ne 5 mg-acetam inophen 325 mg tablet 02/25 completed Not Available Not Available Not Available fluconazo le 200 mg tablet TAKE 1 TABLET BY MOUTH EVERY OTHER DAY FOR 3 DOSES 07/05 completed Not Available Not Available Not Available prednison e 20 mg tablet TAKE 2 TABLETS BY MOUTH EVERY DAY FOR 5 DAYS 07/05 completed Not Available Not Available Not Available dexametha sone 6 mg tablet 05/04 completed Not Available Not Available Not Available metronida zole 250 mg tablet TAKE 1 TABLET BY MOUTH EVERY 8 HOURS FOR 10 DAYS 05/12 completed Not Available Not Available Not Available risperido ne 0.25 mg tablet TAKE 1 TABLET BY MOUTH ONCE DAILY active Not Available Not Available No t Available metronida zole 500 mg tablet TAKE 1 TABLET BY MOUTH TWICE DAILY WITH MEALS FOR 7 DAYS 07/05 completed Not Available Not Available Not Available amoxicill in 875 mg tablet 03/11 completed Not Available Not Available Not Available famotidin e 20 mg tablet 05/04 completed Not Available Not Available Not Available benzonata te 100 mg capsule TAKE 1 CAPSULE BY MOUTH TWICE A DAY NEEDED FOR COUGH 07/05 completed Not Available Not Available Not Available Lamictal 25 mg tablet active Not Available Not Available Not Available cephalexi n 500 mg capsule 04/22 completed Not Available Not Available Not Available oxybutyni n chloride ER 5 mg tablet,ex tended release 24 hr 05/04 completed Not Available Not Available Not Available monteluka st 10 mg tablet 07/05 completed Not Available Not Available Not Available Nitrostat 0.3 mg sublingua l tablet place 1 tablet by sublingu al route at the first sign of an attack; no more than 3 tabs are recommen ded within a 15 minute period. 12/03 completed Prescrib ed Elsewher e: Yes Loca tion: Hor[facility] odify By: radha polkkerryer DateTime : 02/23/20 13 11:00:00 AM Not Available Not Available Not Available ergocalci ferol (vitamin D2) 1,250 mcg (50,000 unit) capsule TAKE 1 CAPSULE BY MOUTH ONCE A WEEK 02/27 completed Not Available Not Available Not Available methylpre dnisolone 4 mg tablets in a dose pack TAKE BY MOUTH DIRECTED ON INSIDE OF PACKAGE 02/27 completed Not Available Not Available Not Available albuterol sulfate HFA 90 mcg/actua tion aerosol inhaler INHALE 2 PUFFS BY MOUTH EVERY 4 HOURS NEEDED FOR SHORTNES S OF BREATH active Not Available Not Available No t Available ketoconaz ole 2 % topical cream APPLY TO AFFECTED AREA TWICE A DAY FOR 14 DAYS 07/05 completed Not Available Not Available Not Available cefdinir 300 mg capsule TAKE 1 CAPSULE BY MOUTH EVERY 12 HOURS FOR 10 DAYS 02/27 completed Not Available Not Available Not Available fluticaso ne propionat e 50 mcg/actua tion nasal spray,minoo pension SHAKE LQ AND U 1 SPR IEN D active Not Available Not Available No t Available metformin ER 500 mg tablet,ex tended release 24 hr TAKE 1 TABLET BY MOUTH ONCE DAILY 07/05 completed Not Available Not Available Not Available risperido ne 0.5 mg tablet 04/07 completed Not Available Not Available Not Available amoxicill in 875 mg-potass ium clavulana te 125 mg tablet TAKE 1 TABLET BY MOUTH TWICE A DAY 07/05 completed Not Available Not Available Not Available amoxicill in 500 mg-potass ium clavulana te 125 mg tablet TAKE 1 TABLET BY MOUTH EVERY 12 HOURS WITH MEALS FOR 5 DAYS 02/27 completed Not Available Not Available Not Available escitalop alejandro 10 mg tablet Take 1 tablet every day by oral route. 02/25 completed Not Available Not Available Not Available escitalop alejandro 20 mg tablet TAKE 1 TABLET BY MOUTH ONCE DAILY active Not Available Not Available No t Available Lexapro 5 mg/5 mL oral solution 03/04 completed Not Available Not Available Not Available nitrofura ntoin monohydra te/macroc rystals 100 mg capsule TAKE 1 CAPSULE BY MOUTH EVERY 12 HOURS FOR 5 DAYS WITH A MEAL/ZANDER D 07/05 completed Not Available Not Available Not Available clonidine 02/25 completed Not Available Not Available Not Available vitamin E 05/04 completed Not Available Not Available Not Available iron 05/04 completed Not Available Not Available Not Available risperido ne 02/25 completed Not Available Not Available Not Available monteluka st 02/25 completed Not Available Not Available Not Available Lamictal 03/04 completed Not Available Not Available Not Available Vitamin D3 02/27 completed Not Available Not Available Not Available Multiple Vitamin, Womens 07/05 completed Not Available Not Available Not Available Vitamin D3 50 mcg (2,000 unit) tablet TAKE 1 TABLET BY MOUTH ONCE DAILY active Not Available Not Available No t Available Womens Daily Gummies 02/25 completed Not Available Not Available Not Available Vitals Date Recorded Body height Systolic blood pressure Diastolic blood pressure Provider Name and Address Organization Details Last Updated DateTime 04/22/2022 165.1 cm 116 mm[Hg] 79 mm[Hg] Adrienne Kearney [facility] 04/22/2022 11:16:26 Date Recorded Body height Body mass index (BMI) Body weight Systolic blood pressure Diastolic blood pressure Provider Name and Address Organization Details Last Updated DateTime 05/12/2022 165.1 cm 39.8 kg/m2 638264.5 8 g 124 mm[Hg] 84 mm[Hg] Diane Burnham [facility] 3 17:37:50 Date Recorded Body height Body mass index (BMI) Body weight Systolic blood pressure Diastolic blood pressure Provider Name and Address Organization Details Last Updated DateTime 05/04/2023 165.1 cm 37.6 kg/m2 067918.8 8 g 126 mm[Hg] 79 mm[Hg] Lydia Borges [facility] 4 10:46:26 Date Recorded Body height Body mass index (BMI) Body weight Systolic blood pressure Diastolic blood pressure Provider Name and Address Organization Details Last Updated DateTime 07/06/2023 165.1 cm 38.1 kg/m2 864688.6 5 g 128 mm[Hg] 76 mm[Hg] Marilyn Nguyen [facility] 4 16:49:26 Date Recorded Body height Body mass index (BMI) Body weight Systolic blood pressure Diastolic blood pressure Provider Name and Address Organization Details Last Updated DateTime 02/28/2024 165.1 cm 37.9 kg/m2 354298.0 6 g 134 mm[Hg] 82 mm[Hg] Ladi Hawkins [facility] 4 09:45:23 Social History Question Answer Notes LastModified by Organizat ion Details LastModified Time Tobacco Smoking Status Never Smoker Leisa Hancock [facility], [facility] 05/12/2022 16:44:58 Do You Have An Advance Directive? No [email or web address] Information not available 10/10/2020 What Is Your Level Of Alcohol Consumption? None [email or web address] Information not available 10/10/2020 Are You Blind Or Do You Have Difficulty Seeing? No [email or web address] Information not available 10/10/2020 What Is Your Level Of Caffeine Consumption? Occasional [email or web address] Information not available 10/10/2020 How Much Tobacco Do You Chew? None [email or web address] Information not available 10/10/2020 In The 14 Days Before Symptom Onset, Have You Had Close Contact With A Laboratory-confir med COVID-19 While That Case Was Ill? No [email or web address] Information not available 10/10/2020 In The 14 Days Before Symptom Onset, Have You Had Close Contact With A Person Who Is Under Investigation For COVID-19 While That Person Was Ill? No [email or web address] Information not available 10/10/2020 Have You Been To An Area Known To Be High Risk For COVID-19? No [email or web address] Information not available 10/10/2020 Are You Deaf Or Do You Have Serious Difficulty Hearing? No [email or web address] Information not available 10/10/2020 What Type Of Diet Are You Following? REGULAR [email or web address] Information not available 10/10/2020 What Is The Highest Grade Or Level Of School You Have Completed Or The Highest Degree You Have Received? [id number] [email or web address] Information not available 10/10/2020 What Is Your Occupation? [employer] [email or web address] Information not available 04/07/2022 Do You Use Protection During Sex? Always [email or web address] Information not available 10/10/2020 Do You Use Your Seat Belt Or Car Seat Routinely? Yes Information not available 10/10/2020 Do You Have Smoke And Carbon Monoxide Detectors In Your Home? Yes [email or web address] Information not available 10/10/2020 How Much Tobacco Do You Smoke? No [email or web address] Information not available 10/10/2020 Do You Feel Stressed (tense, Restless, Nervous, Or Anxious, Or Unable To Sleep At Night)? [id number] [email or web address] Information not available 10/10/2020 Do You Use Any Illicit Or Recreational Drugs? No [email or web address] Information not available 10/10/2020 Do You Use Sunscreen Routinely? No [email or web address] Information not available 10/10/2020 Have You Used IV Drugs? No [email or web address] Information not available 10/10/2020 Sex: Unknown Functional Status Question Answer Note LastModified by Organizat ion Details LastModified Time Do you have difficulty walking or climbing stairs? No [email or web address] Information not available 05/12/2022 Are you able to walk? YESWOREST [email or web address] Information not available 10/10/2020 Are you able to care for yourself? Yes [email or web address] Information not available 05/12/2022 Do you have difficulty dressing or bathing? No [email or web address] Information not available 05/12/2022 What is your exercise level? None [email or web address] Information not available 10/10/2020 Mental Status None recorded. Family History Relationship Description Onset Age of this Age Resolved Age Notes LastModified by Organization Details LastModified Time Mother Asthma [email or web address] Not available 12:41:06 Mother Diabetes mellitus [email or web address] Not available 2019 12:41:20 Mother Acute stroke [email or web address] Not jacquelyn white 02/28/2024 09:35:19 Mother Myocardial infarction [email or web address] Not available 08/15 12:41:40 Mother Suspected ovarian cancer [email or web address] Not available 2023 09:35:19 Mother Heart disease [email or web address] Not available 10/10 11:11:45 Mother Malignant tumor of cervix 40 [email or web address] Not available 2023 09:35:19 Mother Malignant neoplasm of ovary Not available 2020 11:47:05 Paternal Grandmother Diabetes mellitus [email or web address] Not available 2019 12:41:20 Maternal Grandmother Heart disease [email or web address] Not available 2019 12:41:54 Maternal Aunt Heart disease [email or web address] Not available 2019 12:41:54 Maternal Aunt Malignant tumor of breast 30 [email or web address] Not available 2023 09:35:19 Maternal Aunt Malignant neoplasm of liver 40 [email or web address] Not available 2023 09:35:19 Maternal Aunt Malignant neoplasm of liver 40 [email or web address] Not available 2023 09:35:19 Sister Myocardial infarction [email or web address] Not available 08/15 12:42:00 Sister Heart disease [email or web address] Not available 10/10 11:11:45 Sister Malignant tumor of cervix [email or web address] Not available 03/04 14:45:36 Maternal Grandfather Heart disease [email or web address] Not available 10/10 11:11:45 Paternal Grandfather Heart disease [email or web address] Not available 2020 11:47:05 Maternal Uncle Malignant neoplasm of liver 40 [email or web address] Not available 2023 09:35:19 Notes:Father: high bloodpres sure Maternal aunt: Congenital heart disease Maternal grandmother: Congenital heart disease Mother: Diabetes mellitus, Asthma, Myocardial infarction, Stroke, Cervical or Ovarian Cancer Paternal grandmother: Diabetes mellitus Sister: Myocardial infarction Medical History Condition Response Allergies (Food, seasonal, environmental ) Y Other Y Drug/Latex Allergies/Reactions N Blood Transfusion N Breast Cancer N Dermatologic Disorders N Lung Disease N Defects or Inherited Disease N Breast Problem Y Gestational Diabetes N Hematologic disorders N Anesthesia Complications N History of STI N Deep Vein Thrombosis N Polycystic ovary syndrome N Anxiety Disorder Y Autoimmune disease N Arthritis N Polyps N Infertility N Acid Reflux (GERD) Y History of abnormal pap N Cancer N Varicosities N Stroke N Neurologic/Epilepsy Y Endometriosis N High Cholesterol N Fibromyalgia N Headaches N Kidney Disease N Heart Problems N Thyroid Problems N Kidney or Bladder Problems N GI Problems N Eating Disorder N Anemia N Art (IVF or FET) N Psychiatric Illness Y Ovarian Cancer N Diabetes Y Pulmonary (TB, Asthma) N Hepatitis/Liver Disease N Eczema N Urinary Tract Infection N Abuse/Domestic Violence N Asthma Y Trauma/Violence N Depression/ depression Y Heart Disease N Pre-Eclampsia N Hypertension N Osteoporosis N Thrombophilias N Gynecological History Statement/Question Response Abnormal Pap N Date of Last Mammogram 11/06/2020 Date of LMP 06/19/2023 N On BCP's at Conception? N STIs/STDs N Was last menstrual period normal Y HPV Vaccine N Current Control Method IUD Are cycles usually normal N Date of Last Colonoscopy 04/04/2013 Sexually Active? N IUD Menses Monthly N Date of Last Pap Smear 04/07/2022 Sexual Problems? N LMP Approximate Desired Control Method IUD 04/04/2013 N Obstetrics History GPAL:G 0 P 0 0 0 0 Type Value Living 0 Total 0 Past Encounters Encounter ID Performer Location Encounter Start Date Encounter Closed Date Diagnosis/Indication Diagnosis SNOMED-CT Code Diagnosis ICD10 Code Diagnosis Note [id number] Jennyfer iFsher [facility] [address] [address] 08/16/2019 12:25:51 08/16/2019 13:12:45 Mass of left breast 1011297989 1800217 N64.4 Exam findings warrant breast US for left breast complaints & findings. She agrees. Time spent in visit is a total of 26 mins with at least 50% of visit consisting of counseling and review of plan of care. Vaginal lesion 887676838 N94.89 vaginal lesion/boi l appears to have completely resolved on exam. Only an area where it is even faintly detectable but no swelling, tenderness , drainage. Advised to use warm baking soda soaks prn. Contact office if sx's return. [id number] Gwen Orantes MD [facility] [address] [address] 02/26/2020 15:34:07 02/27/2020 15:40:30 Body mass index 30+ - obesity 774234646 Z68.38 Gynecologi c examination 91319264 Z01.419 Intrauteri ne contraceptive device in situ 739205515 Z97.5 [id number] Amna Dixon CNM [facility] [address] [address] 10/10/2020 10:19:37 10/10/2020 11:38:25 Pain of breast 52511962 N64.4 [id number] Amna Dixon [facility] [address],[place] [address] 02/20/2021 12:43:11 02/20/2021 13:57:50 Breast lump 88094161 N63.0 [id number] [facility] [address],[place] [address] 03/04/2021 11:46:54 03/04/2021 13:11:55 Gynecologic examination 62741411 Z01.419 [id number] Gwen Orantes MD [facility] [address],[place] [address] 08/21/2021 11:10:21 08/21/2021 12:46:25 Increased frequency of urination 313634914 R35.0 Break-thro ugh bleeding 17643385 N92.1 Intrauteri ne contraceptive device in situ 556109303 Z97.5 Urgent [place] radha to urinate 02552695 R39.15 Female str ess incontinence 40024290 N39.3 [id number] STEPH Vernon [facility] [address],[place] [address] 03/11/2022 16:45:26 03/11/2022 17:47:27 Urinary symptoms 644564748 R39.9 Suspect UTICx sentRx sent for macrobid, twice a day for 7 daysR/B of medication discussed Dysuria 58205580 R30.0 Vaginal discharge 976252 006 N89.8 Normal appearing vaginal discharge noted on exam todayVagin itis panel sent Contracept ion care management 782108403 Z30.9 (+) IUD strings seen on examRTC for WWE Time spent in visit is a total of 25 mins with at least 50% of visit consisting of counseling and review of plan of care. [id number] Amna Dixon CNM [facility] [address],[place] [address] 04/07/2022 17:47:02 04/09/2022 14:38:12 Urinary symptoms 538276024 R39.9 Gynecologi c examination 38142973 Z01.419 Z11.51 [id number] [facility] [address],[place] [address] 04/09/2022 08:55:19 04/09/2022 10:47:11 Insertion of intrauterine contraceptive device 54847802 Z30.430 Screening procedure 2012 5006 Z13.9 Irregular periods 211420 07 N92.6 [id number] Cindy Alexander SAW [facility] [address],[place] [address] 04/19/2022 15:33:22 04/19/2022 17:41:26 IUD check 140334370 Z30.431 (+) IUD strings seen on exam. Normal appearing lengthWe discussed WNL to have some cramping/s potting that comes and goes for the first 1-2 months after IUD insertion. We agreed to pelvic u/s for further evaluation of IUD placementu /s orderedRTC for pelvic u/s and f/u appointmen Enoch precaution s discussed Time spent in visit is a total of 25 mins with at least 50% of visit consisting of counseling and review of plan of care. [id number] Ailin Lewis [facility] [address],[place] [address] 04/20/2022 16:45:02 04/21/2022 16:05:35 Mechanical complication of intrauterine contraceptive device 067438933 T83.39XD R10.2 [id number] Cindy Alexander [facility] [address],[place] [address] 04/22/2022 11:01:25 04/22/2022 11:56:29 IUD check 164739583 Z30.431 Reviewed recent TVUS - normal, normal appearing IUDDiscuss ed wnl to have some mild cramping post IUD insertionH er symptoms have mostly resolvedBo wel movements have been irregular, we agreed to GI consultRTC for 1 month string check Time spent in visit is a total of 15 mins with at least 50% of visit consisting of counseling and review of plan of care. Irregular bowel habits 008417665 R19.4 [id number] Amna TravisRashmi Dixon CNM [facility] [address],[place] [address] 05/12/2022 16:44:16 05/12/2022 18:12:13 IUD check 525093374 Z30.431 [id number] [facility] [address],[place] [address] 05/04/2023 10:39:27 05/04/2023 11:17:03 Urinary symptoms 304272056 R39.9 Will send urine cx but seems to have more prominent vaginitis sx's todayWill reach out with results if positive Vaginitis 83703792 N76.0 Suspect BV on examRx sentPrefer s oralTake with food & avoid alcohol Counseled on medication R/B's, Most common side effects, & use. All questions were answered to patient satisfacti on. Health Hx was reviewed and updated as reported in chart. Time spent in visit is a total of 21 mins with at least 50% of visit consisting of counseling and review of plan of care. [id number] Cindy Alexander [facility] [address],[place] [address] 07/06/2023 16:39:31 07/06/2023 17:05:23 Urinary symptoms 534883308 R39.9 Ua/cx collected and sentwill update pt with results when availablee ncouraged continue f/u with PCP for back painquesti ons answeredpr ecautions reviewed, notify office with any worsening s/sx's Time spent in visit is a total of 18 mins with at least 50% of visit consisting of counseling and review of plan of care. [id number] Ladi Hawkins Benson [address],[place] [address] 02/28/2024 09:34:56 02/28/2024 10:22:55 Gynecologic examination [id number] Z01.419 Annual gynecologi harjinder exam performed. Patient will come back in a year unless there are new symptoms. Suggest Calcium with Vitamin D if not eating in diet. Patient advised to get annual flu shot. Recommend yearly physicals and perform monthly breast exams. Genetic testing is available for patients with family history of cancer. Engage in safe sexual practices, use condoms. Encouraged to have daily exercise. Avoid tobacco and illicit drugs, moderation of alcohol. If BMI greater than 25 dietary consult advised. If you have any questions please call or email. mammogram- discussed screening early d/t family history, pt had mammogram in 2020 that was WNL. Patient states that as of now she wants to wait until age 38 for routine mammograms , but will consider. Discussed genetic testing for hereditary cancers, informatio n given. colon cancer screening - UTD PCP DEXA scan- n/a Pap smear- pap w/ HPV updated today laboratory evaluation - PCP STI testing - declined, never has been sexually active A Mirena IUD prevents for up to 8 years, and also helps with heavy periods for up to 5 years in women who choose an IUD for control. Patient's IUD expires 04/09/2030. Urinary symptoms [id number] R39.9 Will r/o UTI with urine culture.Re commended limiting bladder irritants, such as caffeine and alcohol. Increase water intake to >64 oz daily to ensure adequate hydration. Health Concerns Section Related Observation LastModified by Organization Detai ls LastModified Time None Recorded Concern Status LastModified by Organization Details LastModified Time None Recorded Advance Directives Directive N: Payers Encounter Date Sequence Insurance Name Policy Number Policy Cervantes Covered Member ID Cervantes Member ID Guarantor Name 04/22/2022 1 [employer] - CHOICE (POS II) [id number] Lara C Benoit [id number] 1 Lara C Laboy 05/12/2022 1 [employer] - CHOICE (POS II) [id number] Lara C Laboy [id number] 1 Lara C Laboy 05/04/2023 1 [employer] - CHOICE (POS II) [id number] Lara C Laboy [id number] 1 Lara C Laboy 07/06/2023 1 [employer] - CHOICE (POS II) [id number] Lara C Laboy [id number] 1 Lara C Laboy 02/28/2024 1 [employer] - CHOICE (POS II) [id number] Lara Laboy [id number] 1 Lara Laboy Notes Date Note Type Note Provider Name and Address Organization Details Recorded Time 3 text/html 31yoPresents for pelvic u/s f/uU/s done to check for IUD placementBilateral cramping that comes and goes since IUD insertion, improving, feeling less oftenBowel movements have been irregular STEPH Vernon [address], [place], [address], [facility] 04/22/2022 11:47:57 3 text/html Patient presents for IUD check, had us and IUD in place, still spotting occ, denies pain, seeing GI drRashmi for abd complaints and having testing, new pcp and diagnosed pre diabetic Amna Dixon CNM [address], [place], [address], [facility] 05/12/2022 18:06:25 4 text/html Vaginal/Vulvar ProblemReported bypatient.Location:vagi na Onset/Timing:abrupt Duration:present for 1-7 days Quality:itching; irritation; + odor and discharge Context:not sexually active (NEVER) Alleviating Factors:none Aggravating Factors:none Associated Symptoms:no vaginal itching; no vaginal irritation; no vaginal pain; no vulvar itching/irritation; no vulvar swelling/erythema; no vulvar pain; no vulvar lesions; no pelvic pain; no dyspareunia; no dysuria; no fever; no abdominal painNotes:Neg pain of abd/pelvis/flankNeg urinary sx's except for frequency but reports usually has this issue.Neg GI sx'sNeg N/V/F/C/D STEPH Garcia-BC [address], [place], [address], [facility] 05/04/2023 11:11:31 4 text/html 32yo G0here today for low back painlow back/tailbone pain for the past few weeks. Has been seeing PCP about this but wants to check for a UTI today. Has been taking ibuprofen and this helps. Aching sensation that comes and goes, worse with activity.neg flank painsneg dysurianeg urinary frequencyneg n/v/fneg urinary urgencyneg vaginal symptomsMirena IUD for BC STEPH Vernon [address], [place], [address], [facility] 07/06/2023 17:04:36 4 text/html Annual GYNReported bypatient.Menstrual cycle:occasional spotting Urinary symptoms:No hematuria; No incontinence;Increased urinary frequency; urine odor Vulva:No genital lesion Vagina:Normal vaginal discharge Breast:No breast pain; No breast lump; No nipple discharge Current Contraception:not sexually active Sexual complaints:No sexual complaints; No pain during intercourse; Normal libido Menopausal Symptoms:No menopausal symptoms; Normal vaginal lubrication Psychological symptoms:No depression; No anxiety; No PMDD Preventive measures:Encourage self breast examination; Encourage regular exercise; Encourage no tobacco use; Encourage regular mammograms starting age 40; Followed with yearly pap smears Patient here for annual exam.Patient doing well with Mirena IUD, denies concerns. Has irregular spotting a few times per year.Patient has never been sexually active, reports that she is asexual.Patient reports intermittent urinary frequency and urine odor. Denies dysuria or urgency. Patient reports a lot of caffeine use and minimal water consumption. Ladi wise, [facility] 02/28/2024 11:14:35 OBGyn Episode No OBEpisode recorded.
--- OUTSIDE RECORDS SUMMARY | 2024-07-30 18:28 | XMS_ITS ---
Author Organization Unknown Medications Medication Instructions Effective Dates (start - stop) Status amoxicillin 500 MG / clavula albino 125 MG Oral Tablet - Completed lamotrigine 200 MG Oral Tablet 2023-02-05 T00:00:00Z - Completed clonidine hydrochloride 0.1 MG Oral Tablet - Completed ergocalciferol 1.25 MG Oral Capsule - Completed escitalopram 20 MG Oral Tablet 2022-11-17 T00:00:00Z - Completed amoxicillin 500 MG / clavula albino 125 MG Oral Tablet - Completed lamotrigine 200 MG Oral Tablet 2022-11-17 T00:00:00Z - Completed clonidine hydrochloride 0.1 MG Oral Tablet - Completed fluticasone propionate 0.05 MG/ACTUAT Metered Dose Nasal [place] - Co mpleted 24 HR metformin hydrochlorid e 500 MG Extended Release Oral Tablet - Compl eted lamotrigine 200 MG Oral Tablet 2022-12-31 T00:00:00Z - Completed - - Compl eted lamotrigine 200 MG Oral Tablet 2023-07-05 T00:00:00Z - Completed risperidone 0.25 MG Oral Tablet 2T00:00:00Z - Completed 24 HR metformin hydrochlorid e 500 MG Extended Release Oral Tablet - Compl eted risperidone 0.25 MG Oral Tablet 2022-11-02 6T00:00:00Z - Completed clonidine hydrochloride 0.1 MG Oral Tablet - Completed - - Compl eted escitalopram 20 MG Oral Tablet 2023-09-29 T00:00:00Z - Completed benzonatate 100 MG Oral Capsule 2023-01-02 6T00:00:00Z - Completed 24 HR metformin hydrochlorid e 500 MG Extended Release Oral Tablet - Compl eted lamotrigine 200 MG Oral Tablet 2023-10-16 T00:00:00Z - Completed risperidone 0.25 MG Oral Tablet 2023-06-04 0T00:00:00Z - Completed risperidone 0.25 MG Oral Tablet 7T00:00:00Z - Completed metronidazole 500 MG Oral Tablet T00:00:00Z - Completed lamotrigine 200 MG Oral Tablet 2023-06-02 T00:00:00Z - Completed escitalopram 20 MG Oral Tablet 2023-09-02 T00:00:00Z - Completed lamotrigine 200 MG Oral Tablet 2023-09-18 T00:00:00Z - Completed lamotrigine 200 MG Oral Tablet 2023-04-06 T00:00:00Z - Completed escitalopram 20 MG Oral Tablet 2023-04-06 T00:00:00Z - Completed clonidine hydrochloride 0.1 MG Oral Tablet - Completed escitalopram 20 MG Oral Tablet 2023-07-05 T00:00:00Z - Completed risperidone 0.25 MG Oral Tablet 2022-12-04 9T00:00:00Z - Completed escitalopram 20 MG Oral Tablet 2023-08-03 T00:00:00Z - Completed - - Compl eted [id number] 200 ACTUAT albuter ol 0.09 MG/ACTUAT Metered Dose Inhaler - Completed clonidine hydrochloride 0.1 MG Oral Tablet - Completed risperidone 0.25 MG Oral Tablet 3T00:00:00Z - Completed escitalopram 20 MG Oral Tablet 2023-05-04 T00:00:00Z - Completed fluconazole 200 MG Oral Tablet 2023-05-11 T00:00:00Z - Completed escitalopram 20 MG Oral Tablet 2023-03-09 T00:00:00Z - Completed cefdinir 300 MG Oral Capsule [id number] 0:00:00Z - Completed ketoconazole 20 MG/ML Topica l Cream - Completed clonidine hydrochloride 0.1 MG Oral Tablet - Completed escitalopram 20 MG Oral Tablet 2022-12-31 T00:00:00Z - Completed lamotrigine 200 MG Oral Tablet 2023-05-04 T00:00:00Z - Completed clonidine hydrochloride 0.1 MG Oral Tablet - Completed escitalopram 20 MG Oral Tablet 2023-02-03 T00:00:00Z - Completed lamotrigine 200 MG Oral Tablet 2023-03-11 T00:00:00Z - Completed risperidone 0.25 MG Oral Tablet 4T00:00:00Z - Completed risperidone 0.25 MG Oral Tablet 2023-07-05 4T00:00:00Z - Completed escitalopram 20 MG Oral Tablet 2023-06-02 T00:00:00Z - Completed escitalopram 20 MG Oral Tablet 2023-10-24 T00:00:00Z - Completed Patient Care team information Name Category Status Period Participants - - Proposed period not known -
--- OUTSIDE RECORDS SUMMARY | 2024-07-30 18:28 | XMS_ITS | Data Portability ---
Author Organization [facility], Main Office Address [address] [place] [address] Care Team Providers Care Vendor Analyst Name Role Phone ASHLEY SUAREZ Primary Care Provider [phone] Assessment No assessment recorded. Plan of Treatment Reminders Order Date Submit Date Provider Last Modified By Organization Details Last Modified Time Details Appointments None recorded. Lab None recorded. Referral None recorded. Procedures None recorded. Surgeries None recorded. Imaging None recorded. Medication Orders Medrol (Jay) 4 mg tablets in a dose pack 024 024 [email or web address] Yaya Castro MD, [address], [place], [address], 4 08:34:00 Patient TargetsNo targets recorded. Patient InstructionsNo instructions recorded. Reason for Referral None Reported. Results Created Date Observation Date Name Description Value Unit Range Abnormal Flag Note LastModifiedBy Organization Detail LastModifiedTime 10/11/19 24 10/11/2023 MRI, brain + inter nal audit ory canal , w/o contr ast No observ ation record ed. BARCODE Not Available 2023 10:45:47 10/13/19 24 10/13/2023 CT, tempo ral bone, w/o contr ast No observ ation record ed. [email or web address] Not Available 2023 11:30:08 Result Notes None recorded. Problems Name Problem SNOMED Code Status Onset Date Resolution Date Notes Provider Name and Address Organization Details Recorded Time Cellulitis 813109143 Active Not Available [facility] 3 09:18:59 Complainin g of a rash Active Not Available [employer] 3 09:18:59 Anxiety state 233110711 Active Not Available [facility] 3 09:18:59 Pain of joint of hand 985737849 Active Not Available [facility] 3 09:18:59 Hand eczema 809049057 Active Not Available [facility] 3 09:18:59 Pain in axilla 876675359 Active Not Available [facility] 3 09:18:59 Asthma finding 828094859 Active Not Available [facility] 3 09:18:59 Obesity 240939697 Active Not Available [facility] 3 09:18:59 Keratosis pilaris 4432321 Active Not Available [facility] 3 09:18:59 Chronic fatigue syndrome 08067592 Active Not Available [facility] 3 09:19:00 Allergic rhinitis 94699022 Active Not Available [facility] 3 09:19:00 Right mastoiditi s 8962605086236 104 Active 2023 AB Kevin, [employer] 4 17:19:34 Otalgia of right ear 4692308190 Active 2023 Yaya Castro MD [address] [place] [address], [address] , [employer] 4 16:18:10 Bilateral earache 193139169 Active 2023 AB Kevin, [employer] 4 17:19:37 Problem Notes None recorded. Procedures Surgical History Date Name Laterality Status Provider Name and Address Organization Details Recorded Time Tonsillectomy completed AB Crump Tabber [facility] [employer] 11/07/2023 16:47:14 Imaging Results Imaging Date Name Status LastModified by Organiz ation Details LastModified Time 10/11/2023 MRI, brain + internal auditory canal, w/o contrast completed [facility] Information not available 10/11/2023 10:45:47 10/13/2023 CT, temporal bone, w/o contrast completed [email or web address] Information not available 11/09/2023 11:30:08 Procedure Notes None recorded. Medical Equipment None Reported. Allergies Allergen ID Allergen Name Allergen Category Reaction Reaction Severity Criticality Documentation Date Start Date Code Code System Note Provider Name and Address Organization Details Recorded Time 84346 codeine medicatio n Not available Not available Not available 06/02/2022 2670 RxNorm ; Pt state s she is not reall y aller gic to codei ne, it cause d drows iness at child rowe, but she has had it since then and it was fine/ no react ion. AB Kevin null, [employer] 4 16:28:25 25282 adhesive environme nt,medica tion rash moderate Not available 06/02/2022 08719 UNK Not Available [facility] 3 09:25:29 43521 Medrol medicatio n facial swelling other Not available Not available Not available 11/17/20232023 2 RxNorm Facia l: pain, redne ss and swell ing. AB Kevin null, [employer] 4 17:24:49 Medications Name Sig Start Date Stop Date Status Note LastModified by Organization Details LastModified Time vitamin d3 (dakota) 50mcg cap TAKE 1 CAPSULE BY MOUTH ONCE DAILY active Not Available Not Available No t Available amoxicillin 500 mg capsule Take 1 capsule twice a day by oral route for 7 days. 11/06 completed Not Available Not Available Not Available clonidine HCl 0.1 mg tablet TAKE 1 TABLET BY MOUTH TWICE DAILY active Not Available Not Available No t Available lamotrigine 200 mg tablet TAKE 1 & 1/2 (ONE & ONE-HALF) TABLETS BY MOUTH ONCE DAILY AT BEDTIME active Not Available Not Available No t Available clindamycin HCl 300 mg capsule TAKE 1 CAPSULE BY MOUTH 4 TIMES DAILY UNTIL GONE active Not Available Not Available No t Available azithromyci n 250 mg tablet active Not Available Not Available Not Available Lidocaine Viscous 2 % mucosal solution active Not Available Not Available Not Available benzonatate 200 mg capsule Take 1 capsule 3 times a day by oral route as needed for 10 days. 11/06 completed Not Available Not Available Not Available fluconazole 200 mg tablet TAKE 1 TABLET BY MOUTH EVERY OTHER DAY FOR 3 DOSES active Not Available Not Available No t Available prednisone 20 mg tablet TAKE 2 TABLETS BY MOUTH EVERY DAY FOR 5 DAYS active Not Available Not Available No t Available risperidone 0.25 mg tablet TAKE 1 TABLET BY MOUTH ONCE DAILY active Not Available Not Available No t Available metronidazo le 500 mg tablet TAKE 1 TABLET BY MOUTH TWICE DAILY WITH MEALS FOR 7 DAYS active Not Available Not Available No t Available Provigil 100 mg tablet Take 2 tablets every day by oral route. 01/02 completed Not Available Not Available Not Available lamotrigine 25 mg tablet active Not Available Not Available Not Available amoxicillin 875 mg tablet active Not Available Not Available Not Available prednisolon e acetate 1 % eye drops,suspe nsion active Not Available Not Available Not Available Nitrostat 0.4 mg sublingual tablet 05/17 completed Not Available Not Available Not Available benzonatate 100 mg capsule TAKE 1 CAPSULE BY MOUTH TWICE A DAY NEEDED FOR COUGH active Not Available Not Available No t Available tobramycin 0.3 % eye drops active Not Available Not Available Not Available triamcinolo ne acetonide 0.1 % topical ointment apply to aa bid x 7 to 10 days prn rash 11/06 completed Not Available Not Available Not Available polymyxin B sulfate 10,000 unit-trimet hoprim 1 mg/mL eye drops active Not Available Not Available Not Available sertraline 25 mg tablet active Not Available Not Available Not Available zolpidem 5 mg tablet active Not Available Not Available No t Available ergocalcife rol (vitamin D2) 1,250 mcg (50,000 unit) capsule TAKE 1 CAPSULE BY MOUTH ONCE A WEEK active Not Available Not Available No t Available methylpredn isolone 4 mg tablets in a dose pack TAKE BY MOUTH DIRECTED ON INSIDE OF PACKAGE active Not Available Not Available No t Available albuterol sulfate HFA 90 mcg/actuati on aerosol inhaler INHALE 2 PUFFS BY MOUTH EVERY 4 HOURS NEEDED FOR SHORTNESS OF BREATH active Not Available Not Available No t Available ketoconazol e 2 % topical cream APPLY TO AFFECTED AREA TWICE A DAY FOR 14 DAYS active Not Available Not Available No t Available cefdinir 300 mg capsule Take 1 capsule every 12 hours by oral route for 10 days. active Not Available Not Available No t Available fluticasone propionate 50 mcg/actuati on nasal spray,suspe nsion USE 1 SPRAY(S) IN EACH NOSTRIL EVERY 12 HOURS active Not Available Not Available No t Available metformin ER 500 mg tablet,exte nded release 24 hr TAKE 1 TABLET BY MOUTH ONCE DAILY active Not Available Not Available No t Available sertraline 50 mg tablet active Not Available Not Available Not Available risperidone 1 mg tablet 05/17 completed Not Available Not Available Not Available risperidone 0.5 mg tablet TK 1 T PO QHS active Not Available Not Available No t Available amoxicillin 500 mg-potassiu m clavulanate 125 mg tablet TAKE 1 TABLET BY MOUTH EVERY 12 HOURS WITH MEALS FOR 5 DAYS active Not Available Not Available No t Available escitalopra m 10 mg tablet TK ONE T PO ONCE D active Not Available Not Available No t Available escitalopra m 20 mg tablet TAKE 1 TABLET BY MOUTH ONCE DAILY active Not Available Not Available No t Available Restasis 0.05 % eye drops in a dropperette active Not Available Not Available Not Available iron active Not Available Not Availa ble Not Available intrauterin e device (IUD) Mirena 2013 active Not Available Not Available Not Avai lable Vitamin D active Not Available Not Evelyne ilable Not Available Abilify 2 mg tablet TK 1 T PO QHS 01/02 completed Not Available Not Available Not Available [facility] D 5 mg-120 mg tablet,exte nded release TK 1 T PO Q 12 HOURS active Not Available Not Available No t Available Vitamin D3 50 mcg (2,000 unit) tablet TAKE 1 TABLET BY MOUTH ONCE DAILY active Not Available Not Available No t Available albuterol 90 mcg-budeson mariano 80 mcg/actuati on HFA aerosol inhaler Inhale by inhalatio n route. active Not Available Not Available No t Available Vitals Date Recorded Body weight Body mass index (BMI) Body height Body temperature Provider Name and Address Organization Details Last Updated DateTime 11/09/2023 650520.22 g 41.8 kg/m2 157.48 cm 97.4 [degF] AB Kevin [facility] 11/09/2023 16:04:40 Social History Question Answer Notes LastModified by Organizat ion Details LastModified Time Tobacco Smoking Status Never Smoker AB Kevin [facility] 11/07/2023 16:45:34 What Is Your Level Of Alcohol Consumption? Occasional [email or web address] Information not available 11/07/2023 What Is Your Occupation? [id number] Information not available 06/02/2022 Sex: Unknown Functional Status None recorded. Mental Status None recorded. Family History Relationship Description Onset Age of this Age Resolved Age Notes LastModified by Organization Details LastModified Time Father Hearing loss [email or web address] Not avail able 11/07/2023 16:45:48 Mother Hearing disorder Hearin g aids ftrotter Not available 11/07/2023 16:46:30 Paternal Grandfather Hearing disorder Hearin g aids [email or web address] Not available 11/07/2023 16:46:44 Medical History Condition Response DIABETES, TYPE Y ENT Y SLEEP DISORDER Y LUNG DISEASE/DISORDER Y Gynecological HistoryNo gynecological history recorded. Obstetrics History GPAL:G 0 P 0 0 0 0 Immunizations Vaccine Type Date Status Note Provider Nam e and Address Organization Details Recorded Time Tdap 12/29/2011 completed Not Available [facility] 06/02/2022 09:25:16 Influenza, split virus, quadrivalent, PF 01/02/2015 completed Not Available [facility] 09:25:17 Hep A, adult 07/11/2013 completed Not Available [facility] 06/02/2022 09:25:17 Influenza, split virus, trivalent, PF 02/26/2014 completed Not Available [facility] 2022 09:25:17 Past Encounters Encounter ID Performer Location Encounter Start Date Encounter Closed Date Diagnosis/Indication Diagnosis SNOMED-CT Code Diagnosis ICD10 Code Diagnosis Note [id number] Yaya Castro MD [facility] [address] [place] [address] 11/09/2023 15:55:18 11/14/2023 17:24:07 Otalgia of right ear 5669460991 H92.01 Health Concerns Section Related Observation LastModified by Organization Detai ls LastModified Time None Recorded Concern Status LastModified by Organization Details LastModified Time None Recorded Advance Directives Directive None Recorded Payers Encounter Date Sequence Insurance Name Policy Number Policy Cervantes Covered Member ID Cervantes Member ID Guarantor Name 11/09/2023 1 [employer] - CHOICE (POS II) [id number] Lara Laboy [id number] Lara Laboy Notes Date Note Type Note Provider Name and Address Organization Details Recorded Time 11/09/2023 text/html This patient reports that she has right mastoid effusion seen on a CT scan of her internal auditory canals. He is placed on cefdinir initially and clindamycin currently. She has asymmetrical hearing loss which she has had for years. She had a recent audiogram in the beginning of the ear. Yaya Castro MD [address] [place] [address], [address] [address], [place], [address], [facility] 11/22/2023 13:36:04 OBGyn Episode No OBEpisode recorded.
--- OUTSIDE RECORDS SUMMARY | 2024-07-30 18:28 | XMS_ITS | Clinical Summary ---
Author Organization [facility] Address [address] [place] [address] Care Team Providers Care Tire Maintenance Technician Name Role Phone Amberly Keen Primary Care Provider [phone] Henrique Fraser MD Unavailable Allergies Active Allergy Reactions Criticality Noted Date Comments Seasonal Eyes Water & Itch 07/22/2020 Tape Rash,Redness High 12/17/2020 Adhesive tape Medications cloNIDine 0.1 MG tablet TK 1 T PO BID 0 8 Active escitalopram 20 MG tablet TK 1 T PO HS 0 8 Active lamoTRIgine 200 MG tablet TK 1 T PO HS 0 8 Active ferrous sulfate EC 324 (65 Fe) MG tablet Take 324 mg by mouth daily with breakfast. Active Multiple Vitamins-Minera ls (MULTIVITAMIN ADULT OR) Take by mouth daily. Active Levonorgestrel (MIRENA, 52 MG, IU) Active fluticasone propionate 50 MCG/ACT nasal sprayIndication s:Seasonal allergies 1 spray by Nasal route daily. 15.8 mL 1 0 Active risperiDONE 0.25 MG tablet 2 Active albuterol sulfate HFA (PROAIR HFA) 108 (90 Base) MCG/ACT inhalerIndicati ons:SUMMERS (dyspnea on exertion) Inhale 2 puffs into the lungs every 4 (four) hours as needed for Wheezing or Shortness of breath. 54 g 00 3 Active Active Problems Problem Noted Date Diagnosed Date Environmental and seasonal allergies 05/30/2019 Headache 04/18/2019 Precordial pain 12/13/2018 Dyslipidemia 12/13/2018 SUMMERS (dyspnea on exertion) 11/25/2018 Snoring 02/08/2018 YANG on CPAP 02/08/2018 Gasping for breath 02/08/2018 Finger stiffness 12/15/2017 Lipoma of back 12/15/2017 ADHD 12/14/2017 Asthma ([facility]) 12/14/2017 Bipolar disorder with depression ([facility]) 12/14/2017 Chronic left shoulder pain 12/14/2017 OCD (obsessive compulsive disorder) 12/14/2017 Tourette's 12/14/2017 Resolved Problems Problem Noted Date Diagnosed Date Resolved Date Sore throat 04/18/2019 02/14/2020 Need for Tdap vaccination 12/14/2017 Encounter for preventive health examination 12/12/2017 12/14/2019 Immunizations Immunization Administration Dates Next Due COVID-19 Vaccine (Generic) 06/12/2020,05/15/2020 Fluzone 6 Months+ Quad (0.5 mL Prefilled Syringe) 01/14/2021,12/31/2019,01/17/2019 Tdap (Generic) 12/14/2017 Family History Medical History Relation Comments Arthritis Father Hypertension Father Heart Attack Maternal Grandfather Open Heart Maternal Grandmother Asthma Mother COPD Mother Diabetes Mother Heart Attack Mother Heart Disease Mother Stroke Mother Diabetes Paternal Grandmother Cancer Paternal Uncle Diabetes Paternal Uncle Heart Attack Sister Relation Status Comments Father Alive Maternal Grandfather Maternal Grandmother (Age 36) Mother Alive bipolar Paternal Grandmother Paternal Uncle Sister (Age 26) Social History Tobacco Use Types Packs/Day Years Used Date Smoking Tobacco: Never Smokeless Tobacco: Never Tobacco Cessation:Counseling Given: No Comments:Never Smoked Alcohol Use Standard Drinks/Week Comments No 0 (1 standard drink = 0.6 oz pur e alcohol) NA AUDIT-C Answer Date Recorded Frequency of Alcohol Consumption Never 02/08/2018 Average Number of Drinks Not on file 018 Frequency of Binge Drinking Not on file 10/2017 PHQ-2 Answer Date Recorded PHQ-2 Score - If the patient scores above 3, please move on to questions 3-9 0 12/24/2021 Comments No Sex and Gender Information Value Date Recorded Sex Assigned at Not on file Legal Sex Female 7:55 AM CDT Gender Identity Not on file Sexual Orientation Not on file Last Filed Vital Signs Vital Sign Reading Time Taken Comments Blood Pressure 121/81 01/01/2022 7:43 AM CDT Pulse 80 01/01/2022 7:43 AM CDT Temperature 36.5 C (97.7 F) 12/24/2021 7:59 AM CDT Respiratory Rate 18 12/24/2021 7:59 AM CDT Oxygen Saturation 98% 12/24/2021 7:59 AM CDT Inhaled Oxygen Concentration - - Weight 112.6 kg (248 lb 3.2 oz) 01/01/2022 7:43 AM CDT Height 160 cm (5' 3 ) 01/01/2022 7:43 AM CDT Body Mass Index 43.97 01/01/2022 7:43 AM CDT Plan of Treatment Health Maintenance Due Date Last Done Comments Annual Physical 12/20/1991 Hepatitis B Vaccines (1 of 3 - 19+ 3-dose series) 12/20/2007 Pneumococcal Vaccine: Pediatrics (0 to 5 Years) and At-Risk Patients (6 to 49 Years) (1 of 2 - PCV) 12/20/2007 Cervical Cancer Screening Pap with HPV Testing (Age 30 to 64) Every 5 Years 2018 COVID-19 Vaccine (2023- season) 2023 06/12/2020, 06/12/2020, 05/15/2020, Additional history exists Cervical Cancer Screening Pap Smear (Age 30 to 64) Every 3 Years 03/04/2024 03/04/2021 Cervical Cancer Screening with HPV 03/04/2024 PHQ-2 (Physician [place]) 04/04/2024 DTaP, Tdap and Td Vaccines (2 - Td or Tdap) 12/15/2027 12/14/2017 Hepatitis C Completed 06/25/2021 HPV Vaccines Aged Out No longer eligi ble based on patient's age to complete this topic Meningococcal B Vaccine Aged Out No l onger eligible based on patient's age to complete this topic Meningococcal Vaccine Aged Out No brian hakeem eligible based on patient's age to complete this topic RSV Immunizations Under 20 Months Aged Out No longer eligible based on patient's age to complete this topic Procedures Procedure Name Priority Date/Time Associated Diagnosis Comments HEPATITIS C ANTIBODY W/RFX TO HCV RNA Routine 06/25/2021 11:24 AM CDT from Last 3 Months or Most Recently Relevant to Health Maintenance Results * HEPATITIS C ANTIBODY W/RFX TO HCV RNA (06/25/2021 11:24 AM CDT) HEPATITIS C AB NON-REACTI VE NON-REACT LEESA [facility] SIGNAL TO CUTOFF 0.01 <[address] [facility] Comment: HCV antibody was non-reactive. There is no laboratory evidence of HCV infection. In most cases, no further action is required. However, if recent HCV exposure is suspected, a test for HCV RNA (test code 11292) is suggested. For additional information please refer to http://education.[employer]/faq/LQK72h3 (This link is being provided for informational/ educational purposes only.) 06/25/2021 11:2 4 AM CDT 06/26/2021 9:36 AM CDT [facility] Final Resul t [facility] [address] [place] [address] from Last 3 Months or Most Recently Relevant to Health Maintenance Insurance AETNA [facility] Care Teams Tire Maintenance Technician Relationship Specialty Start Date End Date Amberly Keen APNP Family & Internal Medicine [place] [address] [place] [address] PCP - General NURSE PRACTITIONER 12/16/17 Henrique Fraser MD [facility] [address] [place] [address] [employer] Architect CARDIOVASCULAR DISEASE 11/21/18
--- OUTSIDE RECORDS SUMMARY | 2024-07-30 18:28 | XMS_ITS | CONTINUITY OF CARE DOCUMENT ---
Author Name mark anthony, mark anthony Address Unknown Organization [facility] Address [address] [place] [address] Phone [phone] Care Team Providers Care Family Service Aide Name Role Phone Maisha Verde MD Unavailable PAMELA TORRES RASHMIN Unavailable PAMELA TORRES RASHMIN Unavailable PROBLEMS Condition Status Date Provider Notes OBESITY active ? Elinor Blunt CHEST PAIN-01/13 ECHO EF 60 active ? Elinor Blunt FAMILY HISTORY OF HEART DISE ASE-01/13 RT STRESS NEG active ? Elinor Blunt YVONNE DE LA TOURETTE DISORDER, HX OF active ? Maisha Verde MD BIPOLAR AFFECTIVE DISORDER active Maisha Verde MD ENCOUNTERS Date Type Provider Location Encounter Diag nosis - In-person encounter Office Visit Maisha Verde MD [place] [facility] YVONNE DE LA TOURETTE DISORDER, HX OFBIPOLAR AFFECTIVE DISORDER - In-person encounter Office Visit Maisha Verde MD [place] - In-person encounter Office Visit Maisha Verde MD [place] CHEST PAIN-01/13 ECHO EF 60FAMILY HISTORY OF HEART DISEASE-01/13 RT STRESS NEG - In-person encounter Office Visit Maisha Verde MD [place] [facility] OBESITYCHEST PAIN-01/13 ECHO EF 60FAMILY HISTORY OF HEART DISEASE-01/13 RT STRESS NEG VITAL SIGNS Date Observation Value Provider blood pressure, diastolic, left arm 72 mm [Hg] Nila Daly blood pressure, systolic, left arm 96 mm[ Hg] Nila Stueber blood pressure, diastolic, right arm 72 m m[Hg] Nila Stueber blood pressure, systolic, right arm 103 m m[Hg] Nila Stueber Body Mass Index (Ratio) 35.20 kg/m2 Twyla vivar Stueber blood pressure, diastolic 72 mm[Hg] Mikel delgado Stueber blood pressure, systolic 96 mm[Hg] Evangelist haynes Stueber pulse rate 77 /min Nila Gaitanue oxygen saturation, oximetry 99 % Nila respiratory rate E&M 18 /min Nila salcedoeber weight E&M 198 [lb_av] Nila Camacho blood pressure, diastolic 64 mm[Hg] Deni Greenwood RN blood pressure, systolic 100 mm[Hg] Fidel Greenwood RN pulse rate 83 /min Fidel Greenwood RN oxygen saturation, oximetry 99 % Fidel Greenwood RN respiratory rate E&M 12 /min Fidel mott RN Body Mass Index (Ratio) 34.67 kg/m2 Fidel Greenwood RN weight E&M 195 [lb_av] Fidel Greenwood RN Body Mass Index (Ratio) 32.71 kg/m2 Heat her Blunt blood pressure, diastolic 77 mm[Hg] Deni Greenwood RN blood pressure, systolic 114 mm[Hg] Fidel Greenwood RN pulse rate 79 /min Fidel Greenwood RN oxygen saturation, oximetry 98 % Fidel Greenwood RN respiratory rate E&M 16 /min Fidel mott RN weight E&M 184 [lb_av] Fidel Greenwood RN blood pressure, diastolic 66 mm[Hg] Araceli seph [place] blood pressure, systolic 110 mm[Hg] Michael eph [place] blood pressure, diastolic 78 mm[Hg] Deni Greenwood RN blood pressure, systolic 117 mm[Hg] Fidel Greenwood RN pulse rate 55 /min Fidel Greenwood RN oxygen saturation, oximetry 98 % Fidel Greenwood RN respiratory rate E&M 16 /min Fidel mott RN Body Mass Index (Ratio) 32.53 kg/m2 Fidel Greenwood RN weight E&M 183 [lb_av] Fidel Greenwood RN height E&M 63 [in_i] Fidel Greenwood RN RESULTS Date Observation Value Provider Reference Range Interpretation Location 7 thyroid stimulating hormone, serum 1.080 u[IU]/mL Kim Langley 7 LDL cholesterol, serum 89 mg/dL Kim Langley 7 cholesterol, serum 158 mg/dL Kim Langley HISTORY OF MEDICATION USE Medication Status Instructions Dates Provider Indications Com ments CATAPRES 0.1 MG ORAL TABLET active 1 tab daily Nila Stueber NITROSTAT 0.4 MG SUBLINGUAL TABLET SUBLINGUAL active PO one tab for chest pain prn Maisha Verde MD LEXAPRO 10 MG ORAL TABLET active daily Fidel Greenwood RN LAMICTAL 200 MG ORAL TABLET active at hs Fidel Greenwood RN SOCIAL HISTORY Date Observation Value Provider social history reviewed E&M reviewed Fidel Greenwood RN drug use no Fidel Greenwood RN passive cigarette sm vance exposure no Fidel Greenwood RN social history reviewed E&M reviewed Fidel Greenwood RN smoking status never smoker Fidel Greenwood RN social history reviewed E&M reviewed Fidel Greenwood RN smoking status never Raghu almendarez social history E&M Marital Statu s: Single 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: Employed full-time E thnicity: Maisha Verde MD 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 Mood and affect are normal. Fidel Greenwood RN assessment of judgme nt and insight E&M Alert and oriented to time, place and person. Mood and affect are normal. Fidel Greenwood RN assessment of judgme nt and insight E&M Alert and oriented to time, place and person. Mood and affect are normal. Fidel Greenwood RN assessment of judgme nt and insight E&M Alert and oriented to time, place and person. Mood and affect are normal. Fidel Greenwood RN INSURANCE PROVIDERS Payer name Policy type / Coverage type [employer] party ID [employer] OPEN ACCESS Other [id number] TREATMENT PLAN Date Name Performer family hx of heart d isease : B P today: 117/78 Prior BP: / () Orders: S tress Test - Routine (CPT-96258) C omplete Echo (CPT-85916) Maisha Verde MD Date Name Complete Echo Stress Test - Routin e HISTORY OF PROCEDURES Procedure Date Procedure Name Provider Procedure Notes S tatus EKG Maisha Verde MD complet ed ePrescribe - Check t his box if eRx is used Maisha Verde MD completed
--- OUTSIDE RECORDS SUMMARY | 2024-07-30 18:29 | XMS_ITS | Patient Health Record ---
Author Organization [facility] [email or web address] Address [address] [place] [address] Care Team Providers Care Electroformer Name Role Phone Garland Bennett MD Primary Care Provider Ramona Imani Suero Unavailable [phone] Migration, Provider Unavailable Unavailable Allergies No Known Allergies Reason For Referral No Information Medications Medication SIG (Take, Route, Frequency, Duration) Notes Start Date End Date Status risperiDONE 0.25 MG 1 tablet Oral Once a day for 90 days Active Escitalopram Oxalate 20 MG 1 tablet Oral Once a day for 90 days Active Fluticasone Propionate Diskus 50 MCG/ACT Inhalation *Reorder from [employer] for eRx and Interaction Alerts* 07/06/2023 Unknown Ergocalciferol 50 MCG (2000 UT) 1 tablet Orally Once a day for 90 days Active metFORMIN HCl ER 500 MG Oral 07/06/2023 Unknown Ergocalciferol 50 MCG (2000 UT) 1 tablet Orally Once a day for 90 days Active Vitamin D3 50 MCG (2000 UT) 1 capsule Orally Once a day for 90 days 02/28/2024 02/22/2025 Active Ergocalciferol 50 MCG (2000 UT) 1 capsule Orally Once a day for 90 days 02/28/2024 02/22/2025 Active lamoTRIgine 200 MG TAKE 1 & 1/2 (ONE & ONE-HALF) TABLETS BY MOUTH ONCE DAILY FOR 30 DAYS for 30 Active cloNIDine HCl 0.1 MG 1 tablet Oral twice daily for 90 days Active Social History Tobacco Use: Social History Observation Description Date Details (start date - stop date) Never Smoker NA - NA Sex Assigned At : Social History Observation Description Sex Assigned At Female Tobacco Control (Standard) Question Answer Notes Tobacco use: Nonsmoker Problems Problem Type SNOMED Code ICD Code Onset Dates Problem Status W/U Status Risk Notes Problem 57699569 WILLAM (generalized anxiety disorder) (F41.1) Active confirmed Problem 24348957 Bipolar 1 disorder, depressed, mild (F31.31) Active confirmed Problem 63542583 Vitamin D deficiency (E55.9) Active confirmed Encounters Encounter Location Date Provider Diagnosis [facility] [address] [place] [address] 09/05/2023 Imani Leigha [facility] [address] [place] [address] 09/08/2023 Imani Ahuja Bipolar 1 disorder, depressed, mild F31.31 ; WILLAM (generalized anxiety disorder) F41.1 and Vitamin D deficiency E55.9 [facility] [address] [place] [address] 11/15/2023 Imani Ahuja Bipolar 1 disorder, depressed, mild F31.31 ; WILLAM (generalized anxiety disorder) F41.1 and Vitamin D deficiency E55.9 [facility] [address] [place] [address] 02/15/2024 Imani Ahuja Bipolar 1 disorder, depressed, mild F31.31 ; WILLAM (generalized anxiety disorder) F41.1 and Vitamin D deficiency E55.9 [facility] [address] [facility] [address] [place] [address] 08/20/2023 Provider Migration [facility] [address] [place] [address] 08/21/2023 Provider Migration [facility] [address] [place] [address] 09/15/2023 Imani Ahuja [facility] [address] [place] [address] 02/28/2024 Imani [facility] [address] [place] [address] 06/15/2024 mIani [facility] [address] [place] [address] 07/02/2024 Imani Ahuja Bipolar 1 disorder, depressed, mild F31.31 [facility] [address] [place] [address] 09/05/2023 Imani Ahuja [facility] [address] [facility] [address] [facility] [address] [place] [address] 02/28/2024 Imani Ahuja Assessments Encounter Date Diagnosis (ICD Code) Assessment Notes Treatment Notes Treatment Clinical Notes Section Notes 09/08/2023 WILLAM (generalized anxiety disorder) (ICD-10 - F41.1) 09/08/2023 Bipolar 1 disorder, depressed, mild (ICD-10 - F31.31) 11/15/2023 Bipolar 1 disorder, depressed, mild (ICD-10 - F31.31) 02/15/2024 Bipolar 1 disorder, depressed, mild (ICD-10 - F31.31) 07/02/2024 Bipolar 1 disorder, depressed, mild (ICD-10 - F31.31) 02/15/2024 WILLAM (generalized anxiety disorder) (ICD-10 - F41.1) 09/08/2023 Vitamin D deficiency (ICD-10 - E55.9) 11/15/2023 WILLAM (generalized anxiety disorder) (ICD-10 - F41.1) 02/15/2024 Vitamin D deficiency (ICD-10 - E55.9) 11/15/2023 Vitamin D deficiency (ICD-10 - E55.9) 09/08/2023 Other Stable on current medications, continue. Start daily vitamin D supplement, completed weekly 50k unit dosing. 11/15/2023 Other Feels stable, declines need for medication adjustment today. Refills sent in today. Patient educated on all medications including potential benefits, side effects, risks. Educated on proper dosing schedule and importance of compliance. 02/15/2024 Other Stable, continue current medications. Refills sent in. Patient educated on all medications including potential benefits, side effects, risks. Educated on proper dosing schedule and importance of compliance. Plan Of Treatment Next Appt Details Provider Name:Imani Ahuja, 08/15/2024 04:45:00 PM, [address], [place], [address], Insurance Providers Payer Name Payer Address Payer Phone Subscriber Number Group Number Insured Name Patient Relationship to Insured Coverage Start Date Coverage End Date Aetna Pos Ii [address] [place] [phone] [id number] LESLY VILLELA Self - patient is the insured Medical (General) History Surgical History Surgery Date(Month/Year) Tonsilectomy/adenoids 05/09/2018 Other 08/13/2022
--- NOTE | 2024-07-30 21:24 | ECG_ITS ---
Test Date: 2024-07-30 21:01:55 Measurements Intervals [place] Rate: 81 P: 32 [place]: 154 QRS: 17 QRSD: 77 T: -8 QT: 394 QTc: 458 Interpretive Statements SINUS RHYTHM CONSIDER INFERIOR INFARCT, AGE INDETERMINATE BORDERLINE ST-T WAVE ABNORMALITY- ANTERIOR LEADS ABNORMAL ECG Compared to ECG 07/30/2024 17:09:48 No significant changes Electronically Signed On 07-31-2024 08:05:59 CDT by Eliu Wilson D.O.
[2024-07-30 22:14] LABS: Troponin I < 0.012 ng/mL (0.000-0.034)
[2024-07-30 23:23] VITALS: PULSE 86
--- OUTSIDE RECORDS SUMMARY | 2024-07-30 23:32 | XMS_ITS | CONTINUITY OF CARE DOCUMENT ---
Author Name mark anthony, mark anthony Address Unknown Organization [facility] Address [address] [place] [address] Phone [phone] Care Team Providers Care Streaming Media Specialist Name Role Phone Maisha Verde MD Unavailable PAMELA TORRES RASHMIN Unavailable [phone] PAMELA TORRES RASHMIN Unavailable PROBLEMS Condition Status [...] In-person encounter Office Visit Maisha Verde MD [facility] YVONNE DE LA TOURETTE DISORDER, HX OFBIPOLAR AFFECTIVE DISORDER - In-person encounter Office Visit Maisha Verde MD [facility] - In-person encounter Office Visit Maisha Verde MD [facility] CHEST PAIN-01/13 ECHO EF 60FAMILY HISTORY OF HEART DISEASE-01/13 RT STRESS NEG - In-person encounter Office Visit Maisha Verde MD [facility] OBESITYCHEST PAIN-01/13 ECHO EF 60FAMILY HISTORY [...] Greenwood RN height E&M 63 [in_i] Fidel rGeenwood RN RESULTS Date Observation Value Provider Reference [...] Fidel Greenwood RN smoking status never smoker Fidle Greenwood RN social history reviewed E&M reviewed Fidel Greenwood RN smoking status never Raghu almendarez social history E&M Marital Statu s: Single 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 E thnicity: Maisha Verde MD Occupation #1 transportation security screener Maisha miller MD physical exercise, f requency, [...] Payer name Policy type / Coverage type [place] red republican ID [employer] OPEN ACCESS Other [id number] TREATMENT PLAN Date Name Performer family hx of heart d isease : B P today: 117/78 Prior BP: / () Orders: S tress Test - Routine (CPT-26847) C omplete Echo (CPT-30330) Maisha Verde MD Date Name Complete Echo Stress Test - Routin e HISTORY OF PROCEDURES Procedure Date Procedure Name Provider Procedure Notes S tatus EKG Maisha Verde MD complet ed ePrescribe - Check t his box if eRx is used Maisha Verde MD completed
--- OUTSIDE RECORDS SUMMARY | 2024-07-30 23:32 | XMS_ITS | Encounter Summary ---
Author Organization [facility] Address [address] [place] [address] Care Team Providers Care Plate Embosser Name Role Phone Amberly Keen Primary Care Provider [phone] Henrique Fraser MD Unavailable [phone] Encounter Details Date Type Department Care Team (Late st Contact Info) Description 09/29/2022 [employer] Message [facility] [address] [place] [address] [place] Provider Air Quality Message Social History Tobacco [...] on filedocumented in this encounter Care Teams Plate Embosser Relationship Specialty Start Date End Date Amberly Keen APNP Family & Internal Medicine [address] [address] PCP - General NURSE PRACTITIONER 12/16/17 Henrique Fraser MD [facility] [address] [place] [address] [facility] Therapy Technician CARDIOVASCULAR DISEASE 11/21/18 documented as of this encounter
--- OUTSIDE RECORDS SUMMARY | 2024-07-30 23:32 | XMS_ITS | Clinical Summary ---
Author Organization [facility] Address [address] [place] [address] Care Team Providers Care Route Specialist Name Role Phone Amberly Keen Primary Care Provider [phone] Henrique Fraser MD Unavailable [phone] Allergies Active Allergy Reactions Criticality Noted Date [...] Lipoma of back 12/15/2017 ADHD 12/14/2017 Asthma ([facility]) 12/14/2017 Bipolar disorder with depression ([facility]) 12/14/2017 Chronic left shoulder pain [...] Cancer Screening with HPV 03/04/2024 PHQ-2 (Physician [place]) 04/04/2024 DTaP, Tdap and Td Vaccines (2 [...] a test for HCV RNA (test code 26845) is suggested. For additional information please refer to http://education.[employer]/faq/RYW02u4 (This link is being provided for informational/ educational purposes only.) 06/25/2021 11:2 4 AM CDT 06/26/2021 9:36 AM CDT [facility] Final Resul t [facility] [address] [place] [address] from Last 3 Months or Most Recently Relevant to Health Maintenance Insurance AETNA [facility] Care Teams Route Specialist Relationship Specialty Start Date End Date Amberly Keen APNP Family & Internal Medicine [place] [address] [place] [address] PCP - General NURSE PRACTITIONER 12/16/17 Henrique Fraser MD [facility] [address] [place] [address] [place] Accounting Associate CARDIOVASCULAR DISEASE 11/21/18
[2024-07-31 00:03] VITALS: BP 118/64; PULSE 82; RESP 16; TEMP 36.5; O2SAT 97
== END 2024-07-31 00:03 | disposition home or self-care (01) ==
PROVIDERS: Emergency Medicine; Emergency Provider Student in an Organized Health Care Education/Training Program
DX: R07.9 Chest pain, unspecified (principal); R73.03 Prediabetes; G47.30 Sleep apnea, unspecified; F31.9 Bipolar disorder, unspecified; Z87.440 Personal history of urinary (tract) infections; Z77.22 Contact with and (suspected) exposure to environmental tobacco smoke (acute) (chronic); Z79.899 Other long term (current) drug therapy; R94.31 Abnormal electrocardiogram [ECG] [EKG]
CPT/HCPCS: 36415; 71046; 80053; 83690; 84484; 85025; 85610; 85730; 93005; 99284

== ENCOUNTER 2025-03-14 07:49 | Emergency (ER) | payer OTHER, SELFPAY ==
[2025-03-14] VITALS (23 sets, daily range): BP systolic 105–128; BP diastolic 61–84; PULSE 63–88; RESP 13–19; TEMP 36.4; O2SAT 98–100
--- NOTE | ~2025-03-14 | XR_ITS ---
EXAMINATION: XR chest 2V DATE: 03/14/2025 08:24 INDICATION: Chest pain TECHNIQUE: PA and lateral views of the chest were obtained. COMPARISON: Chest radiograph dated 07/30/24 FINDINGS: The lungs remain clear with no focal airspace opacities, pulmonary edema, pleural effusion or pneumothorax. The cardiomediastinal silhouette is normal. Mild thoracic spondylosis. IMPRESSION: 1. No acute cardiopulmonary disease. Reviewed, dictated and finalized at location [facility]
--- NOTE | 2025-03-14 07:50 | ECG_ITS ---
Test Date: 2025-03-14 07:59:42 Measurements Intervals [place] Rate: 83 P: 43 UT: 156 QRS: 46 QRSD: 82 T: 9 QT: 388 QTc: 458 Interpretive Statements SINUS RHYTHM LOW QRS VOLTAGE IN PRECORDIAL LEADS BORDERLINE ST-T WAVE ABNORMALITY- INFERIOR LEADS BASELINE ARTIFACT- I, II, III, AVR, AVL ,AVF, V6 BORDERLINE ECG Compared to ECG 07/30/2024 21:01:55 NO SIGNIFICANT CHANGE Electronically Signed On 03-14-2025 08:13:37 CERTIFIED PHLEBOTOMY TECHNICIAN by Eliu Wilson D.O.
[2025-03-14 08:10] LABS: Hematocrit 36.9 % (37.0-47.0); Hemoglobin 12.5 g/dL (12.0-15.0); Immature Granulocyte Percent A 0.1 % (0-0.5); Lymphocytes Absolute Auto 1.91 K/mm3 (0.9-3.2); Mean Corpuscular HGB Conc 33.9 g/dl (32-36); Mean Corpuscular Hemoglobin 27.8 pg (26-34); Mean Corpuscular Volume 82.2 fl (80-100); Nucleated Red Blood Cells Absolute Auto 0.000 K/mm3 (0.0-0.012); Nucleated Red Blood Cells Perc 0.0 % (0.0-0.2); Platelet Count Result 210 k/mm3 (150-375); Red Blood Count 4.49 M/mm3 (4.2-5.4); White Blood Count 7.0 K/mm3 (4.5-10.0)
[2025-03-14 08:22] LABS: Alanine Aminotransferase 28 U/L (6-35); Albumin Level 4.3 g/dL (3.5-5.1); Alkaline Phosphatase 43 U/L (38-126); Anion Gap 4 mmol/L (4-12); Aspartate Amino Transferase 28 U/L (14-36); Bilirubin,Total 0.4 mg/dL (0.2-1.3); Blood Urea Nitrogen 15 mg/dL (7-17); Calcium 9.2 mg/dL (8.4-10.2); Carbon Dioxide 25 mmol/L (22-30); Chloride 106 mmol/L (98-107); Estimated CRCL calculation 79 ml/min; Estimated Glomerular Filt Rate > 60; Glucose 135 mg/dL (65-110); Lipase 79 U/L (23-300); Potassium 4.1 mmol/L (3.4-5.0); Sodium 135 mmol/L (137-145); Total Protein 7.7 g/dL (6.3-8.2)
[2025-03-14] MEDS: ASPIRIN 81 MG CHEWABLE TABLET 324 MG PO (08:22)
[2025-03-14 08:26] LABS: INR 1.1; Prothrombin Time 14.4 Seconds (11.1-14.7)
[2025-03-14 08:27] LABS: Partial Thromboplastin Time 32.4 Seconds (22.3-36.8)
[2025-03-14 08:33] LABS: Troponin I < 0.012 ng/mL (0.000-0.034)
--- NOTE | 2025-03-14 10:05 | PC.NURSE ---
patient updated to plan of care, three hour troponin due in about 45 minutes, patient denied any questions or concerns.
--- NOTE | 2025-03-14 11:28 | ECG_ITS ---
Test Date: 2025-03-14 11:37:12 Measurements Intervals [place] Rate: 66 P: 42 DC: 157 QRS: 52 QRSD: 82 T: 7 QT: 424 QTc: 445 Interpretive Statements SINUS RHYTHM LOW QRS VOLTAGE IN PRECORDIAL LEADS BORDERLINE ECG Compared to ECG 03/14/2025 07:59:42 No significant changes Electronically Signed On 03-14-2025 12:07:45 RESERVOIR CARETAKER by Eliu Wilson D.O.
[2025-03-14 11:35] LABS: Troponin I < 0.012 ng/mL (0.000-0.034)
--- NOTE | 2025-03-14 12:22 | ED.CHESTPAIN ---
HPI - Chest Pain General Chief Complaint: Chest Pain Stated Complaint: chest pain and left arm tingling Time Seen by Provider: 03/14/25 08:00 History of Present Illness HPI narrative: Patient is a 34-year-old female who presents ER with tingling to left hand. Mainly digits 3 through 5 but also feels occasionally in her foam and index finger. Radiates up towards her elbow. Began during the night. Has not had this previously. She then started having some achiness in the left chest 2 hours prior to arrival. No dyspnea. She does have family history of heart disease but no personal history. No weakness of the extremity. No exertional dyspnea and chest pain. Related Data Home Medications ?Medication ?Instructions ?Recorded ?Confirmed ?Last Taken ?Type clonidine HCl 0.1 mg tablet 0.1 mg PO BID 04/29/22 12/07/24 Unknown History escitalopram oxalate 20 mg tablet 20 mg PO DAILY 04/29/22 12/07/24 Unknown History lamotrigine 200 mg tablet 200 mg PO QHS 04/29/22 12/07/24 Unknown History risperidone 0.25 mg tablet 0.25 mg PO QHS 04/29/22 12/07/24 Unknown History ferrous sulfate 325 mg (65 mg 325 mg PO DAILY 05/19/22 12/07/24 Unknown History iron) tablet Allergies Allergy/AdvReac Type Severity Reaction Status Date / Time adhesive Allergy Unknown RASH Verified 12/07/24 08:12 Review of Systems Review of Systems: All systems reviewed & are unremarkable except as noted in HPI and below Constitutional: Constitutional: Reports no additional constitutional complaints ENT: Reports system reviewed and no additional complaints, except as documented Cardiovascular: Cardiovascular: Reports no additional cardiovascular complaints Respiratory: Respiratory: Reports no additional respiratory complaints Musculoskeletal: Musculoskeletal: Reports no additional musculoskeletal complaints [facility] Past Medical History Medical History (Updated 03/14/25 @ 12:23 by Eugene Bernal MD) History of bipolar disorder BMI 40.0-44.9, adult Diarrhea Pre-diabetes Sleep apnea History of brain tumor resolved Urinary tract infection Surgical History Surgical History History of colonoscopy 2022 hemorrhoids Hx of tonsillectomy Family History Family History (Updated 12/07/24 @ 08:24 by Emani Hurst APRN) Father Hypertension Psoriasis Kidney stones Mother Diabetes mellitus Heart problem got pacemaker in 2024 due to syncopal episodes Cancer Depression Cerebrovascular accident Acute myocardial infarction Sibling Acute myocardial infarction, Onset Age: 26 , Heart disease Grandparent Asthma Depression Heart problem Cerebrovascular accident Hypertension Alcoholism Social History Social History Smoking status: Never smoker Second hand tobacco smoke exposure: Yes Alcohol intake: never Substance use: never Substance use type: does not use Lack of Transportation: No Lack of Food: Never True Current Housing: I Have Housing Concerned About Future Housing: No Difficulty Paying Gas/Electric Bills: No Difficulty Paying for Meds: No Currently Unemployed: No Education: High School Diploma/GED Difficulty w/ Childcare or Family Care: No Living arrangements: with family Occupation/Education: occupation Additional occupation/education comments: [employer] Gender identity (if verbalized by the patient): Female Spiritual care concerns: No Exam Narrative: GENERAL: Well-appearing, well-nourished, and in no acute distress. HEAD: Normocephalic, atraumatic. ENT: Mucous membranes moist. CHEST: Clear to auscultation. No respiratory distress. HEART: Regular rate and rhythm. Normal peripheral pulses. ABDOMEN: Soft, nontender, nondistended,. EXTREMITIES: Normal range of motion. No edema. Positive carpal tunnel compression test left wrist. SKIN: Warm, dry, no rash. NEURO: Alert and oriented x3. PSYCH: Normal mood and affect. Course Course Emergency Course: Discussed diagnosis and treatment plan. Needs to purchase [id number] cock-up wrist splint. Will place on anti-inflammatories. Follow-up with PCP. Vital Signs Vital signs: Vital Signs Temperature 97.6 F 03/14/25 07:56 Pulse Rate 84 03/14/25 07:56 Respiratory Rate 15 03/14/25 07:56 Blood Pressure 128/74 03/14/25 07:56 Pulse Oximetry 99 03/14/25 07:56 Oxygen Delivery Room Air 03/14/25 07:56 Temperature 97.6 F 03/14/25 07:56 Pulse Rate 79 03/14/25 08:01 Respiratory Rate 15 03/14/25 08:01 Blood Pressure 128/74 03/14/25 08:00 Pulse Oximetry 98 03/14/25 08:01 Oxygen Delivery Room Air 03/14/25 08:01 [facility] Differential Diagnosis Differential Diagnosis: Carpal tunnel syndrome, cervical radiculopathy, pneumonia, pneumothorax, ACS, musculoskeletal pain Lab Data [facility] Lab Attestation statement: I personally reviewed the patient's lab results. 03/14/25 08:04 03/14/25 08:04 Labs: Lab Results 03/14/25 03/14/25 Range/Units 08:04 11:07 WBC 7.0 (4.5-10.0) K/mm3 RBC 4.49 (4.2-5.4) M/mm3 Hgb 12.5 (12.0-15.0) g/dL Hct 36.9 L (37.0-47.0) % MCV 82.2 (80-100) fl MCH 27.8 (26-34) pg MCHC 33.9 (32-36) g/dl RDW 13.1 (11.5-14.5) % Plt Count 210 (150-375) k/mm3 MPV 9.1 (7.4-10.4) fl Immature Gran % (Auto) 0.1 (0-0.5) % Neut % (Auto) 59.9 (45.5-73.1) % Lymph % (Auto) 27.4 (18.3-44.2) % Gregory % (Auto) 7.0 (2.6-8.5) % Eos % (Auto) 4.2 (0-4.4) % Baso % (Auto) 1.4 H (0.2-1.2) % Lymph # (Auto) 1.91 (0.9-3.2) K/mm3 Gregory # (Auto) 0.5 (0.1-0.6) K/mm3 Eos # (Auto) 0.3 (0-0.3) K/mm3 Baso # (Auto) 0.1 (0.0-0.1) K/mm3 Abs Immat Gran (auto) 0.01 (0.00-0.031) K/mm3 Absolute Neuts (auto) 4.2 (1.3-6.7) K/mm3 Absolute Nucleated RBC 0.000 (0.0-0.012) K/mm3 Nucleated RBC % 0.0 (0.0-0.2) % PT 14.4 (11.1-14.7) Seconds INR 1.1 APTT 32.4 (22.3-36.8) Seconds Sodium 135 L (137-145) mmol/L Potassium 4.1 (3.4-5.0) mmol/L Chloride 106 (98-107) mmol/L Carbon Dioxide 25 (22-30) mmol/L Anion Gap 4 (4-12) mmol/L BUN 15 (7-17) mg/dL Creatinine 1.01 H (0.7-1.0) mg/dL Estim Creat Clear Calc 79 ml/min Estimated GFR > 60 (59 - ) Glucose 135 H (65-110) mg/dL Calcium 9.2 (8.4-10.2) mg/dL Total Bilirubin 0.4 (0.2-1.3) mg/dL AST 28 (14-36) U/L ALT 28 (6-35) U/L Alkaline Phosphatase 43 (38-126) U/L Troponin I < 0.012 < 0.012 (0.000-0.034) ng/mL Total Protein 7.7 (6.3-8.2) g/dL Albumin 4.3 (3.5-5.1) g/dL Lipase 79 (23-300) U/L Imaging Data Radiologist's impression: ITS Impressions Chest X-Ray 03/14/25 08:28 IMPRESSION: 1. No acute cardiopulmonary disease. ECG Data EKG #1: ECG completion date: 03/14/25 ECG completion time: 07:59 normal rate (83), sinus rhythm, non-specific ST changes, normal QRS and normal QT Discharge Plan Discharge Clinical Impression: Carpal tunnel syndrome, Chest pain Patient Disposition: Home Condition: Stable Instructions: Chest Pain (ED), Carpal Tunnel Syndrome (DC) Additional Instructions: Please return to the emergency department if you develop severe and persistent chest pain, difficulty breathing, dizziness, leg swelling or if you are coughing up blood as these can be signs of a medical emergency. Please call your doctor for a follow up appointment to determine the need for further testing. Purchase a wrist splint intake anti-inflammatory medication to help with her carpal tunnel issues. Follow-up with her PCP. Patient Language: Citizen [place] Prescriptions: New naproxen 375 mg tablet 375 mg PO BID Qty: 14 0RF No Action clonidine HCl 0.1 mg tablet 0.1 mg PO BID lamotrigine 200 mg tablet 200 mg PO QHS risperidone 0.25 mg tablet 0.25 mg PO QHS escitalopram oxalate 20 mg tablet 20 mg PO DAILY cholecalciferol (vitamin D3) 50 mcg (2,000 unit) capsule 100 mcg PO DAILY Qty: 60 6RF ferrous sulfate 325 mg (65 mg iron) Tablet 325 mg PO DAILY albuterol sulfate 90 mcg/actuation HFA aerosol inhaler 2 puff inhalation Q4H PRN (Reason: Shortness Of Breath) Qty: 8.5 3RF Follow-up/Referrals: Emani Hurst, [facility] [Primary Care Provider, Family Practice] - 1 Week Stand Alone Forms: Work/School Release IP Quality HEART score for chest pain patients History: slightly suspicious ECG: non specific repolarization disturbance/LBTB/PM Age: < or = to 45 years Risk factors: 1 or 2 risk factors Troponin: < or = to 1x normal limit Heart score: 2
== END 2025-03-14 12:33 | disposition home or self-care (01) ==
PROVIDERS: Emergency Provider Emergency Medicine; PCP Nurse Practitioner Family
DX: G56.00 Carpal tunnel syndrome, unspecified upper limb (principal); R07.9 Chest pain, unspecified
CPT/HCPCS: 36415; 71046; 80053; 83690; 84484; 85025; 85610; 85730; 93005; 99284; A9270